=== PATIENT | female | born 1980 ===

== ENCOUNTER 2020-04-23 12:11 | Outpatient (REF) | payer OTHER, SELFPAY ==
--- NOTE | 2020-04-23 12:27 | XR_ITS ---
EXAMINATION: XR RIBS, LEFT CLINICAL INFORMATION: Chest pain COMPARISON: Previous chest x-ray July 2019 TECHNIQUE: 3 views of the left ribs and one view of the chest were obtained. FINDINGS: Lungs are clear. No consolidation, pneumothorax, or pleural effusion. The cardiomediastinal silhouette and pulmonary vasculature are normal. Osseous structures are unremarkable. Ribs are intact. No fractures are identified. XR/XR ribs LT min 3V w CXR1V IMPRESSION: Unremarkable examination.
== END 2020-04-23 12:12 | disposition home or self-care (01) ==
LOC: HO.XRAY 12:11
PROVIDERS: PCP Internal Medicine; Visit Provider Internal Medicine
DX: R07.9 Chest pain, unspecified (principal)
CPT/HCPCS: 71101

== ENCOUNTER 2020-06-28 08:57 | Outpatient (REF) | payer OTHER, SELFPAY ==
[2020-06-29 13:19] LABS: BV Int Neg Control Negative (Negative); BV Int Pos Control Positive (Positive)
[2020-06-30 02:17] LABS: C. trachomatis RNA TMA NOT DETECTED (NOT DETECTED); N. gonorrhoeae RNA TMA NOT DETECTED (NOT DETECTED)
[2020-07-04 17:07] LABS: HPV mRNA E6/E7 rflx Not Detected (Not Detected)
== END 2020-06-28 08:58 | disposition home or self-care (01) ==
LOC: HO.LAB 08:57
PROVIDERS: PCP Internal Medicine; Visit Provider Advanced Practice Midwife
DX: Z01.419 Encounter for gynecological examination (general) (routine) without abnormal findings (principal); N92.1 Excessive and frequent menstruation with irregular cycle; N89.8 Other specified noninflammatory disorders of vagina; R10.2 Pelvic and perineal pain; R23.2 Flushing; E55.9 Vitamin D deficiency, unspecified; Z97.5 Presence of (intrauterine) contraceptive device; Z11.8 Encounter for screening for other infectious and parasitic diseases; Z11.3 Encounter for screening for infections with a predominantly sexual mode of transmission
CPT/HCPCS: 36415; 81003; 84443; 87480; 87491; 87510; 87591; 87624; 87660; 88142

== ENCOUNTER 2020-07-02 11:21 | Outpatient (REF) | payer OTHER, SELFPAY | END 2020-07-02 11:22 | disposition home or self-care (01) | LOC: HO.LAB 11:21 | PROVIDERS: Visit Provider Advanced Practice Midwife | DX: Z13.89 Encounter for screening for other disorder (principal) ==

== ENCOUNTER 2020-07-11 12:57 | Outpatient (REF) | payer OTHER, SELFPAY ==
--- NOTE | ~2020-07-11 | US_ITS ---
EXAMINATION: US PELVIC COMPLETE US TRANSVAGINAL CLINICAL INFORMATION: Pain. COMPARISON: Previous pelvic MRI 2017. TECHNIQUE: Transabdominal and transvaginal pelvic ultrasound was performed. Transvaginal exam was performed for better visualization of the uterus and ovaries. FINDINGS: The uterus is retroverted and measures 7.3 x 4.3 x 5.4 cm in dimension. There is a 9 x 8 x 9 mm hypoechoic lesion in the right uterine body suggestive of a fibroid. No other focal uterine lesion is seen. There is an IUD in the uterus in satisfactory position. The endometrium does not appear thickened measuring 0.3 cm. The right ovary measures 3.9 x 2.1 x 2.3 cm. There are 2 slightly complex right ovarian cysts with daughter cysts or septation. These measure 1.3 x 1.3 x 1.2 cm and 1.7 x 1.2 x 1.3 cm. The left ovary is normal-appearing and measures 3 x 2.1 x 1.9 cm. There is no fluid in the pelvis. US/US transvaginal IMPRESSION: IUD in the uterus in satisfactory position. Small uterine fibroid.
--- NOTE | ~2020-07-11 | US_ITS ---
EXAMINATION: US PELVIC COMPLETE US TRANSVAGINAL CLINICAL INFORMATION: Pain. COMPARISON: Previous pelvic MRI 2017. TECHNIQUE: Transabdominal and transvaginal pelvic ultrasound was performed. Transvaginal exam was performed for better visualization of the uterus and ovaries. FINDINGS: The uterus is retroverted and measures 7.3 x 4.3 x 5.4 cm in dimension. There is a 9 x 8 x 9 mm hypoechoic lesion in the right uterine body suggestive of a fibroid. No other focal uterine lesion is seen. There is an IUD in the uterus in satisfactory position. The endometrium does not appear thickened measuring 0.3 cm. The right ovary measures 3.9 x 2.1 x 2.3 cm. There are 2 slightly complex right ovarian cysts with daughter cysts or septation. These measure 1.3 x 1.3 x 1.2 cm and 1.7 x 1.2 x 1.3 cm. The left ovary is normal-appearing and measures 3 x 2.1 x 1.9 cm. There is no fluid in the pelvis. US/US pelvic complete IMPRESSION: IUD in the uterus in satisfactory position. Small uterine fibroid.
== END 2020-07-11 12:58 | disposition home or self-care (01) ==
LOC: HO.US 12:57
PROVIDERS: Visit Provider Advanced Practice Midwife
DX: R10.2 Pelvic and perineal pain (principal)
CPT/HCPCS: 76830; 76856

== ENCOUNTER → 2020-07-17 09:45 | Outpatient (BNVA) | payer OTHER, SELFPAY | PROVIDERS: PCP Internal Medicine; Visit Provider Advanced Practice Midwife | DX: N83.299 Other ovarian cyst, unspecified side (principal); R10.2 Pelvic and perineal pain; Z71.2 Person consulting for explanation of examination or test findings | CPT/HCPCS: 99212 ==

== ENCOUNTER 2020-09-06 08:25 | Outpatient (REF) | payer OTHER, SELFPAY ==
--- NOTE | ~2020-09-06 | XR_ITS ---
EXAMINATION: XR SHOULDER, LEFT CLINICAL INFORMATION: Pain COMPARISON: Previous x-ray January 2009 TECHNIQUE: Three views of the left shoulder. FINDINGS: The bones and soft tissues are normal. No fracture. Glenohumeral and acromioclavicular alignment is anatomic with normal joint space. No abnormal soft tissue calcifications. XR/XR shoulder LT min 2V IMPRESSION: Normal left shoulder.
== END 2020-09-06 08:26 | disposition home or self-care (01) ==
LOC: HO.HOSX 08:25
PROVIDERS: Visit Provider Physician Assistant
DX: M25.512 Pain in left shoulder (principal); S16.1XXA Strain of muscle, fascia and tendon at neck level, initial encounter; M79.18 Myalgia, other site
CPT/HCPCS: 73030; 99202

== ENCOUNTER 2020-09-11 15:51 | Outpatient (REF) | payer OTHER, SELFPAY ==
--- NOTE | ~2020-09-11 | XR_ITS ---
EXAMINATION: XR CERVICAL SPINE CLINICAL INFORMATION: Neck pain. COMPARISON: None TECHNIQUE: 3 views of the cervical spine were obtained. FINDINGS: There is mild straightening of cervical lordosis.. The vertebral heights and alignment is normal. There is mild loss of C5-C6 and T1-T2 disc levels. There is minimal ventral spondylosis at C3-C4 and C5-C6 disc levels. No acute fracture or lytic process seen. The prevertebral and paravertebral soft tissues are normal. XR/XR cervical spine 2V IMPRESSION: Mild straightening of cervical lordosis with mild loss of C5-C6 and T1-T2 disc heights. No visible acute fracture or dislocation seen. There is mild ventral spondylosis at the C3-C4 and C5-C6 disc levels.
== END 2020-09-11 15:52 | disposition home or self-care (01) ==
LOC: HO.XRAY 15:51
PROVIDERS: PCP Internal Medicine; Visit Provider Internal Medicine
DX: M54.2 Cervicalgia (principal)
CPT/HCPCS: 72040

== ENCOUNTER 2020-10-14 12:42 | Outpatient (REF) | payer OTHER, SELFPAY ==
--- NOTE | ~2020-10-14 | US_ITS ---
EXAMINATION: PELVIC ULTRASOUND CLINICAL INFORMATION: Pain COMPARISON: Previous pelvic ultrasound recent July 2020 TECHNIQUE: Transabdominal and transvaginal pelvic ultrasound was performed. Transvaginal exam was performed for better visualization of the uterus and ovaries. FINDINGS: The uterus is retroverted and measures 7.5 x 4.5 x 5.1 in dimension. No focal uterine lesion is seen. The previously identified small right uterine body fibroid is not appreciated. There is an IUD in the uterus in satisfactory position. Endometrial thickness measures 1.3 cm. There is a small amount of fluid seen in the endometrial cavity. The endometrium appears slightly irregular in contour. The cervix is normal appearing. The right ovary measures 4.2 x 2.8 x 2.2 cm. There is a 2.2 x 1.4 x 1.7 cm complex cyst which is slightly irregularly-shaped, has a thickened wall and some septations. This probably represents an involuting physiologic cyst. The left ovary is normal-appearing and measures 3 x 2 x 1.5 cm. There is a small amount of fluid in the pelvis. US/US transvaginal IMPRESSION: IUD in the uterus in satisfactory position. Small amount of fluid in the endometrial cavity and irregular contour of the endometrial surface. New 2.2 x 1.4 x 1.7 cm right ovarian cyst irregularly-shaped probably representing an involuting physiologic cyst.
--- NOTE | ~2020-10-14 | US_ITS ---
EXAMINATION: PELVIC ULTRASOUND CLINICAL INFORMATION: Pain COMPARISON: Previous pelvic ultrasound recent July 2020 TECHNIQUE: Transabdominal and transvaginal pelvic ultrasound was performed. Transvaginal exam was performed for better visualization of the uterus and ovaries. FINDINGS: The uterus is retroverted and measures 7.5 x 4.5 x 5.1 in dimension. No focal uterine lesion is seen. The previously identified small right uterine body fibroid is not appreciated. There is an IUD in the uterus in satisfactory position. Endometrial thickness measures 1.3 cm. There is a small amount of fluid seen in the endometrial cavity. The endometrium appears slightly irregular in contour. The cervix is normal appearing. The right ovary measures 4.2 x 2.8 x 2.2 cm. There is a 2.2 x 1.4 x 1.7 cm complex cyst which is slightly irregularly-shaped, has a thickened wall and some septations. This probably represents an involuting physiologic cyst. The left ovary is normal-appearing and measures 3 x 2 x 1.5 cm. There is a small amount of fluid in the pelvis. US/US pelvic complete IMPRESSION: IUD in the uterus in satisfactory position. Small amount of fluid in the endometrial cavity and irregular contour of the endometrial surface. New 2.2 x 1.4 x 1.7 cm right ovarian cyst irregularly-shaped probably representing an involuting physiologic cyst.
== END 2020-10-14 12:43 | disposition home or self-care (01) ==
LOC: HO.US 12:42
PROVIDERS: PCP Internal Medicine; Visit Provider Advanced Practice Midwife
DX: R10.2 Pelvic and perineal pain (principal); N83.299 Other ovarian cyst, unspecified side
CPT/HCPCS: 76830; 76856

== ENCOUNTER 2020-10-21 13:18 | Outpatient (REF) | payer OTHER, SELFPAY ==
[2020-10-22 18:56] LABS: CA-125 9 U/mL (<35)
== END 2020-10-21 13:19 | disposition home or self-care (01) ==
LOC: HO.LAB 13:18
PROVIDERS: PCP Internal Medicine; Visit Provider Advanced Practice Midwife
DX: N83.291 Other ovarian cyst, right side (principal); R10.2 Pelvic and perineal pain; M54.9 Dorsalgia, unspecified; M79.18 Myalgia, other site; Z71.2 Person consulting for explanation of examination or test findings
CPT/HCPCS: 36415; 86304; 99212

== ENCOUNTER 2020-11-29 15:33 | Outpatient (REF) | payer OTHER, SELFPAY ==
--- NOTE | ~2020-11-29 | US_ITS ---
EXAMINATION: US PELVIS COMPLETE US PELVIS ENDOVAGINAL CLINICAL INFORMATION: Ovarian cyst. LMP 11/11/2020 COMPARISON: 10/14/2020 TECHNIQUE: Transabdominal and transvaginal images of the pelvis were obtained. FINDINGS: UTERUS: Retroverted, retroflexed. Normal size and contour, measuring 8.1 x 3.9 x 4.8 cm (cervix to fundus x AP x transverse). An IUD is seen centrally in the endometrial canal Uniform, homogeneous endometrium measures 0.8 cm in width. Again seen is a 1 cm leiomyoma in the right uterine body. 79 cc total uterine volume. RIGHT OVARY: Normal size and echogenicity measuring 3.5 x 1.6 x 1.5 cm. 4.4 cc volume. LEFT OVARY: Normal size and echogenicity measuring 3.7 x 1.9 x 1.9 cm. 6.9 cc volume. Irregular, crenulated 2.0 x 1.4 x 1.7 cm corpus luteum cyst. FREE FLUID: No pelvic free fluid. US/US pelvic and transvaginal IMPRESSION: Normal appearance of the ovaries bilaterally. IUD satisfactorily positioned centrally in the endometrial canal. Unchanged 1 cm right uterine body leiomyoma.
== END 2020-11-29 15:34 | disposition home or self-care (01) ==
LOC: HO.US 15:33
PROVIDERS: Visit Provider Advanced Practice Midwife
DX: N83.299 Other ovarian cyst, unspecified side (principal)
CPT/HCPCS: 76830; 76856

== ENCOUNTER 2020-12-06 13:11 | Outpatient (REF) | payer OTHER, SELFPAY ==
--- NOTE | ~2020-12-06 | XR_ITS ---
EXAMINATION: XR CHEST CLINICAL INFORMATION: Cough. COMPARISON: Chest and rib radiographs dated 04/23/2020. TECHNIQUE: 2 views of the chest were obtained. FINDINGS: The lungs are clear. The cardiomediastinal silhouette is normal in size. There is no pleural effusion or pneumothorax. No acute osseous abnormality. XR/XR chest 2V IMPRESSION: No acute cardiopulmonary findings.
== END 2020-12-06 13:12 | disposition home or self-care (01) ==
LOC: HO.XRAY 13:11
PROVIDERS: PCP Internal Medicine; Visit Provider Internal Medicine
DX: R05 Cough (principal)
CPT/HCPCS: 71046

== ENCOUNTER 2021-03-07 14:05 | Outpatient (REF) | payer OTHER, SELFPAY ==
--- NOTE | ~2021-03-07 | MM_ITS ---
EXAMINATION: MM SCREENING DIGITAL BREAST TOMOSYNTHESIS, BILATERAL CLINICAL INFORMATION: Screening. Asymptomatic. The lifetime risk of breast cancer based on the Tyrer-Cuzick Model is 6%. COMPARISON: Mammography: 01/15/2020, 01/09/2020, 12/23/2018, 06/05/2014 TECHNIQUE: Digital breast tomosynthesis is performed in both the craniocaudal and mediolateral oblique views along with computer-aided detection (CAD). Synthesized 2D images are generated from the tomosynthesis. FINDINGS: The breasts are heterogeneously dense, which may obscure small masses (ACR BI-RADS breast composition Category c). Breast tissue composition borders on average fibroglandular. Parenchymal pattern is similar to prior studies. No developing density or interval mass or architectural abnormality. No abnormal calcifications. The axilla and skin contours are unremarkable. MM/MM tomosynthesis screening BI IMPRESSION: No mammographic evidence of malignancy. ASSESSMENT: BI-RADS 1: Negative RECOMMENDATION: Routine annual mammography screening. This patient's information was entered into a reminder system with a target due date for their next mammogram.
== END 2021-03-07 14:06 | disposition home or self-care (01) ==
LOC: HO.MAMMO 14:05
PROVIDERS: Visit Provider Advanced Practice Midwife
DX: Z12.31 Encounter for screening mammogram for malignant neoplasm of breast (principal)
CPT/HCPCS: 77063; 77067

== ENCOUNTER 2021-04-18 15:51 | Outpatient (REF) | payer OTHER, SELFPAY ==
--- NOTE | ~2021-04-18 | XR_ITS ---
EXAMINATION: XR HAND, RIGHT CLINICAL INFORMATION: Right hand pain. COMPARISON: None TECHNIQUE: PA, lateral, and oblique views of the right hand. FINDINGS: There is a small cortical lucency along the ulnar aspect of the distal phalanx of the third digit which could represent small nondisplaced incomplete fracture the right clinical setting. No other abnormality. Alignment is anatomic. Joint spaces are maintained. No erosions or other abnormality. XR/XR hand RT 2V IMPRESSION: Subtle cortical lucency distal phalanx right third digit.
== END 2021-04-18 15:52 | disposition home or self-care (01) ==
LOC: HO.XRAY 15:51
PROVIDERS: PCP Internal Medicine; Visit Provider Internal Medicine
DX: M79.641 Pain in right hand (principal)
CPT/HCPCS: 73120

== ENCOUNTER 2021-05-08 12:55 | Outpatient (REF) | payer OTHER, SELFPAY ==
[2021-05-08 14:46] LABS: Appearance Urine CLEAR; Color Urine STRAW; Glucose Urine UA NEG (NEG); Leukocyte Esterase Urine 3+ (NEG); Nitrite Urine POS (NEG); Specific Gravity - Urine <= 1.005 (1.005-1.025); UACC Culture Trigger YES; Urine Blood NEG (NEG); Urine Ketones NEG (NEG); Urine Protein NEG (NEG-TRACE)
[2021-05-08 14:56] LABS: Squamous Epithelial Cell Urine 1+ /LPF; WBC Clumps Urine NOTED
[2021-05-08 14:58] LABS: Amorphous Sediment Urine 1+ /LPF; Bacteria Urine TRACE /LPF; RBC Urine 0 /HPF (0)
== END 2021-05-08 12:56 | disposition home or self-care (01) ==
LOC: HO.LAB 12:55
PROVIDERS: Internal Medicine; Visit Provider Internal Medicine
DX: R30.9 Painful micturition, unspecified (principal)
CPT/HCPCS: 81001; 87086; 87088; 87186

== ENCOUNTER → 2021-05-14 12:58 | Outpatient (BNVA) | payer OTHER, SELFPAY | PROVIDERS: PCP Internal Medicine; Visit Provider Nurse Practitioner Family | DX: M54.89 Other dorsalgia (principal); M79.672 Pain in left foot; R21 Rash and other nonspecific skin eruption | CPT/HCPCS: 99212 ==

== ENCOUNTER 2021-05-15 09:31 | Outpatient (REF) | payer OTHER, SELFPAY ==
[2021-05-15 10:20] LABS: Hematocrit 36.9 % (37.0-47.0); Hemoglobin 13.8 g/dl (12.0-16.0); Mean Corpuscular HGB Conc 37.4 g/dl (31.0-35.0); Mean Corpuscular Hemoglobin 33.2 pg (27.0-33.0); Mean Corpuscular Volume 88.7 fL (80.0-98.0); Platelet Count 393 X10*3/uL (160-400); Red Blood Count 4.16 X10*6/uL (4.20-5.50); Red Cell Distribution Width 13.1 % (11.0-16.0)
[2021-05-15 10:26] LABS: Estimated Average Glucose 80 mg/dL; Hemoglobin A1c % 4.4 %
[2021-05-15 10:37] LABS: WBC ABN SCTR FOR CBC 1
[2021-05-15 10:47] LABS: Appearance Urine CLEAR; Color Urine YELLOW; Glucose Urine UA NEG (NEG); Leukocyte Esterase Urine 1+ (NEG); Nitrite Urine NEG (NEG); Specific Gravity - Urine <= 1.005 (1.005-1.025); UACC Culture Trigger YES; Urine Blood NEG (NEG); Urine Ketones NEG (NEG); Urine Protein NEG (NEG-TRACE)
[2021-05-15 10:59] LABS: Alanine Aminotransferase 8 U/L (0-31); Albumin Level 3.9 g/dL (3.5-5.0); Alkaline Phosphatase 62 U/L (39-117); Anion Gap 13 (12-20); Aspartate Amino Transferase 19 U/L (5-31); Bilirubin Total 1.1 mg/dL (0.0-1.0); Blood Urea Nitrogen 8 mg/dL (9-16); C Reactive Protein 2.05 mg/dL (< or = 0.50); Calcium 9.6 mg/dL (8.4-10.2); Carbon Dioxide 22 mmol/L (22-29); Chloride 106 mmol/L (96-108); Cholesterol 202 mg/dL; Estimated Glomerular Filt Rate > 60; Glucose Random 89 mg/dL (60-115); HDL Cholesterol 70 mg/dL; LDL Cholesterol Calculated 118 mg/dl; Potassium 4.6 mmol/L (3.3-5.1); Sodium 136 mmol/L (135-145); Total Protein 7.3 g/dL (6.5-8.0); Triglycerides 71 mg/dL
[2021-05-15 11:08] LABS: Free T4 (Free Thyroxine) 1.09 ng/dL (0.71-1.85); Thyroid Stimulating Hormone 1.27 uIU/mL (0.32-4.0); Vitamin D 25-OH Total 34.6 ng/mL (>30)
[2021-05-15 11:32] LABS: Atypical Lymphs Percent Manual 1 % (0-6); Band Neutrophils Percent 5 % (3-5); Eosinophils Percent Manual 1 % (0-4); Lymphocytes Percent Manual 19 % (20-40); Monocytes Percent Manual 5 % (2-11); Neutrophils Percent Manual 69 % (45-73)
[2021-05-15 11:33] LABS: Acanthocytes 2+ (3-5) /OIF; Platelet Estimate NORMAL (NORMAL); Platelet Morphology Comment NORMAL; RBC Morphology NORMAL
[2021-05-15 11:34] LABS: Ovalocytes 1+ (5-14) /OIF; Target Cells 1+ (5-14) /OIF
[2021-05-15 11:38] LABS: Erythrocyte Sedimentation Rate 28 MM/HR (0-20)
[2021-05-15 11:53] LABS: Folate 14.7 ng/mL (> or = 4.0); Vitamin B12 439 pg/mL (200-900)
[2021-05-15 11:55] LABS: Atypical Lymph Absolute Manual 0.1 x10*3/uL; Eosinophils Absolute Manual 0.1 X10*3/uL (0.0-0.4); Lymphocytes Absolute Manual 1.7 X10*3/uL (1.2-4.9); Monocytes Absolute Manual 0.5 X10*3/uL (0.1-1.2); Neutrophils Absolute Manual 6.7 X10*3/uL (2.0-8.3); White Blood Count 9.1 X10*3/uL (4.8-10.8)
[2021-05-15 11:56] LABS: RBC Urine 0-2 /HPF (0); Squamous Epithelial Cell Urine 1+ /LPF
== END 2021-05-15 09:32 | disposition home or self-care (01) ==
LOC: HO.LAB 09:31
PROVIDERS: Visit Provider Internal Medicine
DX: E78.00 Pure hypercholesterolemia, unspecified (principal); K21.9 Gastro-esophageal reflux disease without esophagitis; M54.89 Other dorsalgia
CPT/HCPCS: 36415; 80053; 80061; 81001; 82306; 82607; 82746; 83036; 84439; 84443; 85007; 85027; 85652; 86140; 87086

== ENCOUNTER 2021-08-18 14:13 | Outpatient (REF) | payer OTHER, SELFPAY ==
--- NOTE | ~2021-08-18 | XR_ITS ---
EXAMINATION: XR LUMBOSACRAL SPINE CLINICAL INFORMATION: Low back pain COMPARISON: Previous x-ray January 2013 TECHNIQUE: Three views of the lumbosacral spine. FINDINGS: The vertebral bodies and posterior elements are normal. The disc spaces are preserved and the vertebral alignment is normal. The paraspinal soft tissues are normal. There is an IUD in the pelvis. XR/XR lumbar spine 2-3V IMPRESSION: Unremarkable examination.
--- NOTE | ~2021-08-18 | XR_ITS ---
EXAMINATION: XR HIP, LEFT CLINICAL INFORMATION: Pain COMPARISON: Previous x-ray January 2009 TECHNIQUE: Two views of the left hip. FINDINGS: Bone alignment is normal. No fracture or dislocation is seen. The joint space is normal. There is an IUD in the pelvis. Soft tissues are otherwise normal. XR/XR hip LT min 2V IMPRESSION: Normal left hip.
== END 2021-08-18 14:14 | disposition home or self-care (01) ==
LOC: HO.XRAY 14:13
PROVIDERS: PCP Internal Medicine; Visit Provider Internal Medicine
DX: M25.552 Pain in left hip (principal); M54.50 Low back pain, unspecified
CPT/HCPCS: 72100; 73502

== ENCOUNTER 2021-09-02 07:17 | Outpatient (REF) | payer OTHER, SELFPAY | END 2021-09-02 07:18 | disposition home or self-care (01) | LOC: HO.HOSX 07:17 | PROVIDERS: Visit Provider Physician Assistant | DX: Z13.89 Encounter for screening for other disorder (principal) ==

== ENCOUNTER 2021-09-04 09:10 | Outpatient (REF) | payer OTHER, SELFPAY ==
[2021-09-08 20:42] LABS: HPV mRNA E6/E7 rflx Not Detected (Not Detected)
== END 2021-09-04 09:11 | disposition home or self-care (01) ==
LOC: HO.LAB 09:10
PROVIDERS: PCP Internal Medicine; Visit Provider Advanced Practice Midwife
DX: Z01.419 Encounter for gynecological examination (general) (routine) without abnormal findings (principal); Z11.51 Encounter for screening for human papillomavirus (HPV)
CPT/HCPCS: 87624; 88142

== ENCOUNTER 2021-10-24 07:09 | Outpatient (REF) | payer OTHER, SELFPAY ==
--- NOTE | ~2021-10-24 | XR_ITS ---
EXAMINATION: XR PELVIS CLINICAL INFORMATION: Left hip pain. COMPARISON: Left hip 08/18/2021 TECHNIQUE: AP view of the pelvis. FINDINGS: There is normal symmetry of bilateral hip joints without any bony erosive changes or loose bodies. No visible acute fracture or dislocation seen. SI joints are symmetrical and normal. There is an IUD well located within central pelvis. The soft tissues are normal. XR/XR pelvis 1-2V IMPRESSION: Unremarkable AP pelvis exam.
== END 2021-10-24 07:10 | disposition home or self-care (01) ==
LOC: HO.HOSX 07:09
PROVIDERS: Visit Provider Physician Assistant
DX: M54.16 Radiculopathy, lumbar region (principal)
CPT/HCPCS: 72170; 99212

== ENCOUNTER → 2021-11-19 10:16 | Outpatient (BNVA) | payer OTHER, SELFPAY | PROVIDERS: PCP Internal Medicine; Visit Provider Anesthesiology | DX: M46.1 Sacroiliitis, not elsewhere classified (principal); M53.3 Sacrococcygeal disorders, not elsewhere classified | CPT/HCPCS: 99202 ==

== ENCOUNTER 2022-02-20 09:48 | Outpatient (REF) | payer OTHER, SELFPAY ==
[2022-02-20 10:04] LABS: MANUAL DIFF FLAG NO
[2022-02-20 11:01] LABS: Basophils Percent Auto 0.3 % (0-2); Eosinophils Absolute Auto 0.1 X10*3/uL (0.0-0.4); Eosinophils Percent Auto 1.3 % (0-4); Hematocrit 39.3 % (37.0-47.0); Hemoglobin 14.3 g/dl (12.0-16.0); Imm Gran Abs Auto 0.03 X10*3/uL (0.00-0.03); Imm Gran Pct Auto 0.4 % (0.0-0.4); Lymphocytes Absolute Auto 2.2 X10*3/uL (1.2-4.9); Lymphocytes Percent Auto 32.2 % (20-40); Mean Corpuscular HGB Conc 36.4 g/dl (31.0-35.0); Mean Corpuscular Hemoglobin 33.3 pg (27.0-33.0); Mean Corpuscular Volume 91.6 fL (80.0-98.0); Monocytes Absolute Auto 0.6 X10*3/uL (0.1-1.2); Monocytes Percent Auto 8.3 % (2-11); Neutrophils Absolute Auto 3.9 x10*3/uL (2.0-8.3); Neutrophils Percent Auto 57.5 % (45-73); Platelet Count 338 X10*3/uL (160-400); Red Blood Count 4.29 X10*6/uL (4.20-5.50); Red Cell Distribution Width 14.1 % (11.0-16.0); White Blood Count 6.8 X10*3/uL (4.8-10.8)
[2022-02-20 11:19] LABS: Alanine Aminotransferase 7 U/L (0-31); Aspartate Amino Transferase 19 U/L (5-31); Estimated Glomerular Filt Rate > 60
[2022-02-20 11:35] LABS: Erythrocyte Sedimentation Rate 5 MM/HR (0-20)
== END 2022-02-20 09:49 | disposition home or self-care (01) ==
LOC: HO.LAB 09:48
PROVIDERS: PCP Internal Medicine; Visit Provider Nurse Practitioner Family
DX: M25.50 Pain in unspecified joint (principal); Z79.899 Other long term (current) drug therapy
CPT/HCPCS: 36415; 82565; 84450; 84460; 85025; 85652; 86140

== ENCOUNTER → 2022-03-06 13:19 | Outpatient (BNVA) | payer OTHER, SELFPAY | PROVIDERS: PCP Internal Medicine; Visit Provider Nurse Practitioner Family | DX: M54.50 Low back pain, unspecified (principal); R21 Rash and other nonspecific skin eruption; M79.7 Fibromyalgia | CPT/HCPCS: 99212 ==

== ENCOUNTER 2022-03-13 14:07 | Outpatient (REF) | payer OTHER, SELFPAY ==
--- NOTE | ~2022-03-13 | MM_ITS ---
EXAMINATION: MM SCREENING DIGITAL BREAST TOMOSYNTHESIS, BILATERAL CLINICAL INFORMATION: Screening. Asymptomatic. The lifetime risk of breast cancer based on the Tyrer-Cuzick Model is 6%. COMPARISON: Mammography: 03/07/2021, 01/15/2020, 01/09/2020, 12/23/2018 TECHNIQUE: Digital breast tomosynthesis is performed in both the craniocaudal and mediolateral oblique views along with computer-aided detection (CAD). Synthesized 2D images are generated from the tomosynthesis. FINDINGS: The breasts are heterogeneously dense, which may obscure small masses (ACR BI-RADS breast composition Category c). There are no significant masses, abnormal calcifications, or other abnormalities. Breast tissue composition borders on average fibroglandular. No developing density or architectural abnormality. The axilla are unremarkable. Skin contours are smooth. MM/MM tomosynthesis screening BI IMPRESSION: No mammographic evidence of malignancy. ASSESSMENT: BI-RADS 1: Negative RECOMMENDATION: Routine annual mammography screening. This patient's information was entered into a reminder system with a target due date for their next mammogram.
== END 2022-03-13 14:08 | disposition home or self-care (01) ==
LOC: HO.MAMMO 14:07
PROVIDERS: PCP Internal Medicine; Visit Provider Internal Medicine
DX: Z12.31 Encounter for screening mammogram for malignant neoplasm of breast (principal)
CPT/HCPCS: 77063; 77067

== ENCOUNTER 2022-03-26 13:56 | Outpatient (REF) | payer OTHER, SELFPAY ==
--- NOTE | 2022-03-26 16:08 | PFT_ITS ---
Forced vital capacity 84%, FEV1 94%, FEV1/FVC ratio is 91. [id number] 112% and MVV 103%. Post bronchodilator therapy, there is no significant change. Total lung capacity 81%. Residual volume 71%. Diffusion capacity 116% CONCLUSION: Normal pulmonary function test, and there is no evidence of any obstructive or restrictive pulmonary disorder. MD ELIA Van/GILLL / [id number]
== END 2022-03-26 13:57 | disposition home or self-care (01) ==
LOC: HO.RESP 13:56
PROVIDERS: PCP Internal Medicine; Visit Provider Internal Medicine
DX: R06.02 Shortness of breath (principal)
CPT/HCPCS: 94060; 94727; 94729

== ENCOUNTER 2022-09-10 09:29 | Outpatient (REF) | payer OTHER, SELFPAY ==
[2022-09-10 15:28] LABS: CT PCR NOT DETECTED (Not Detect.); NG PCR NOT DETECTED (Not Detect.)
[2022-09-14 22:44] LABS: HPV mRNA E6/E7 rflx Not Detected (Not Detected)
== END 2022-09-10 09:30 | disposition home or self-care (01) ==
LOC: HO.LNP 09:29
PROVIDERS: PCP Internal Medicine; Visit Provider Advanced Practice Midwife
DX: Z01.419 Encounter for gynecological examination (general) (routine) without abnormal findings (principal); Z20.2 Contact with and (suspected) exposure to infections with a predominantly sexual mode of transmission
CPT/HCPCS: 0353U; 81003; 87624; 88142

== ENCOUNTER 2023-03-05 13:05 | Outpatient (AMB) | payer OTHER, SELFPAY ==
[2023-03-05 13:06] VITALS: BP 112/68; PULSE 71; O2SAT 98; BMI 22.6
--- NOTE | 2023-03-05 13:06 | MHC.PC.OV ---
Vital Signs 03/05/23 13:06 Height 4 ft 11 in Weight 112 lb BMI 22.6 BP 112/68 Blood Pressure Location Lt brachial Position Sitting Pulse 71 Pulse Source Pulse Oximeter Pulse Oximetry (%) 98 Oxygen Delivery Method Room Air Intake Visit Reasons: PE Intake Note: Patient wants full blood work because she is over 40 and has been experiencing some dizziness. Allergies No Known Allergies Allergy (Verified 03/05/23 13:07) Medication List - Last Reconciled 03/05/23 by Trell Day MD calcium carbonate 390 mg PO BID cholecalciferol (vitamin D3) 10 mcg PO DAILY cyclobenzaprine 5 mg PO BEDTIME PRN fexofenadine ([place]maira Allergy) 180 mg PO DAILY naproxen 375 mg PO BID vitamin B complex (B Complex-Vitamin B12 tablet) 1 tab PO DAILY Tobacco use date assessed: 03/05/23 Dental Screening Dental Screen Date: 03/05/23 Did you have a dental visit in the last 12 months?: Yes Did you have a dental problem in the last 6 months where you did not have access to dental care?: No Was dental information given to patient?: Patient has dentist HPI PE HPI Details 42-year-old female with a history of GERD and sacroiliitis coming in for physical exam last seen in January 2022. Mammogram is due patient was complaining of shortness of breath and a pulmonary function test was done revealing negative results. Irene felt dizzy, feels watery ear, states romanian med has diarrhea PFSH Medical History Angioedema GERD (gastroesophageal reflux disease) Gestational diabetes Hx of abnormal cervical Pap smear Hypercholesterolemia Vitamin D deficiency Surgical History Hx of LASIK No pertinent past surgical history Family History (Updated 03/05/23 @ 13:43 by Trell Day MD) Father CVD (cerebrovascular disease) Mother No problems noted. Sister Nasopharyngeal cancer Social History (Updated 03/05/23 @ 13:44 by Trell Day MD) Housing: House Alcohol intake: current Patient Tobacco Use Status: Never used Tobacco e-Cigarette/Vaping Use: Never Used Second Hand Smoke Exposure: No service: No Current occupational status: unemployed Cognitive needs: No Hearing needs: No Vision needs: No Questionnaire PHQ-9 Over the last 2 weeks, how often have you been bothered by any of the following problems? 1. Little interest or pleasure in doing things: not at all 2. Feeling down, depressed, or hopeless: not at all 3. Trouble falling or staying asleep, or sleeping too much: not at all 4. Feeling tired or having little energy: not at all 5. Poor appetite or overeating: not at all 6. Feeling bad about yourself - or that you are a failure or have let yourself or your family down: not at all 7. Trouble concentrating on things, such as reading the newspaper or watching television: not at all 8. Moving or speaking so slowly that other people could have noticed. Or the opposite - being so fidgety or restless that you have been moving around a lot more than usual: not at all 9. Thoughts that you would be better off or of hurting yourself in some way: not at all Total score: 0 Depression Screening Interpretation: Negative Depression Screening Done: Yes Source: Developed by Drs. Bayron Daugherty, Rosemary Burrows, Elias Villanueva and colleagues, with an educational niecy from [employer]. Thrive Questionnaire Date Thrive assessed: 03/05/23 I am a: Patient What is your living situation today?: I have a steady place to live Within the past 12 months, did the food you bought not last and you didn't have the money to get more?: Never true Within the past 12 months, did you worry whether your food would run out before you got money to buy more?: Never true Do you have trouble paying for medicines?: No Do you have trouble getting transportation to medical appointments?: No Do you have trouble paying your heating and electricity bill?: No Do you have trouble taking care of your child, family member or friend?: No Do you have trouble with day-to-day activities such as bathing, preparing meals, shopping, managing finances, etc.?: No Are you currently unemployed and looking for a job?: No Are you interested in more education?: No Currently or been in a relationship where the following occur: no concerns reported AUDIT C Alcohol Use Questionnaire (AUDIT-C) 1. How often do you have a drink containing alcohol?: Monthly or less 2. How many drinks containing alcohol do you have on a typical day when you are drinking?: 1 or 2 3. How often do you have six or more drinks on one occasion?: Never Total Score: 1 LAMINE-7 AMB Questionnaire LAMINE-7 Date LAMINE - 7 assessed: 03/05/23 Feeling nervous, anxious, or on edge: 0 = Not at all Not being able to stop or control worryin = Not at all Worrying too much about different things: 0 = Not at all Trouble relaxin = Not at all Being so restless that it is hard to sit still: 0 = Not at all Becoming easily annoyed or irritable: 0 = Not at all Feeling afraid as if something awful might happen: 0 = Not at all Total LAMINE-7 score (0-4 normal; 5-9 mild; 10-14 moderate; 15-21 severe): 0 Source: Developed by Drs. Bayron Daugherty, Rosemary Burrows, Elias Villanueva and colleagues, with an educational niecy from [employer]. Review of Systems Const Denies poor appetite and Denies weakness Eyes Denies no additional complaints ENT Reports Normal hearing present, Denies dizziness, Denies nasal congestion, Denies tinnitus and Denies sore throat Card Denies chest pain, Denies syncope, Denies rapid heart rate and Denies dyspnea Resp Denies cough and Denies dyspnea GI Denies change in stool character, Reports constipation, Denies diarrhea, Denies nausea and Denies vomiting Denies urinary frequency, Denies difficulty voiding and Denies dysuria Neuro Reports Normal hearing present, Denies confusion, Denies dizziness, Denies syncope and Denies weakness Psych Denies confusion Physical exam (Primary Care) Vital Signs: Last Vital Signs Pulse 71 03/05/23 13:06 BP 112/68 03/05/23 13:06 Pulse Ox 98 03/05/23 13:06 Oxygen Delivery Method Room Air 03/05/23 13:06 BMI result Body Mass Index 22.6 Tobacco/Smoking Status: Tobacco use Status Tobacco use date assessed 03/05/23 03/05/23 13:14 Patient Tobacco Use Status Never used Tobacco 03/05/23 13:14 e-Cigarette/Vaping Use Never Used 03/05/23 13:14 PHQ-9: PHQ-9 Score PHQ-9: Total score 0 03/05/23 13:17 Depression Screening Interpretation: Negative Thrive Assessment: Date of Thrive Assessment Date Thrive assessed 03/05/23 03/05/23 13:14 Currently or been in a relationship where the following occur: no concerns reported Const General: No confusion Orientation/consciousness: No confusion HENMT Head: Yes normocephalic Ears: external ears normal and TM's normal bilaterally Face and sinus: Yes normal facial exam Mouth: moist mucous membranes Throat: Yes tonsils normal Eyes Conjunctivae: conjunctivae normal Pupils: Equal, round and reactive pupils present and Pupil accommodation reflex normal Direct Ophthalmoscopy: normal light reflex Neck Neck: No lymphadenopathy Thyroid: Thyroid normal Chest Chest palpation & inspection: normal inspection of the chest Resp Effort & Inspection: normal respiratory effort and no audible wheezes Auscultation: clear to auscultation bilaterally, no crackles, no wheezes and lung sounds not diminished Cardio Rate: regular rate Rhythm: regular rhythm Peripheral pulses: radial pulses present and dorsalis pedis present GI Palpation (GI): no masses Auscultation: normal bowel sounds and normoactive bowel sounds Rectal Exam - Female: deferred Skin General skin exam: no rashes or lesions noted Rashes: no rashes Neuro General: No confusion Cranial nerves: Yes Equal, round and reactive pupils present and Yes Normal hearing present Cognition (Neuro): normal cognition Gait exam (Neuro): Normal gait present Motor exam (neuro): 5/5 motor strength present throughout Deep tendon reflexes (DTR's): Right brachioradialis reflex intensity grade: 2+, Left brachioradialis reflex intensity grade: 2+, Right patellar reflex intensity grade: 2+ and Left patellar reflex intensity grade: 2+ Extrem General: No edema Office Procedures Flu Questionnaire Does the patient have a severe egg allergy?: No Does the patient have severe life threatening allergies?: No Does the patient have a fever or illness today?: No Has the patient ever had Guillain-Glenwood Syndrome?: No Has the patient ever had any past reaction to a flu shot?: No Immunizations flu vacc [id number] 6mos up(PF) 60 mcg(15 mcgx4)/0.5 mL IM syringe Performing Provider: Trell Day MD [facility] Documented (not given) by: Kathryn Gerardo CMA on 03/05/23 13:17 Reason Not Given: Patient Refused Assessment and Plan Assessment & Plan (1) Annual physical exam: Code(s): Z00.00 - Encounter for general adult medical examination without abnormal findings (2) GERD (gastroesophageal reflux disease): Code(s): K21.9 - Gastro-esophageal reflux disease without esophagitis Qualifiers: Esophagitis presence: without esophagitis Qualified Code(s): K21.9 - Gastro-esophageal reflux disease without esophagitis Plan: Avoid the foods that causes that usually spicy foods, tomato products, juices, coffee, soda and foods that your sensitive to. After eating do not lie down, allow 3-4 hours before in lie down. And keep the head of bed above 30 degrees to avoid the acid from going up. (3) Ear congestion: Code(s): H93.8X9 - Other specified disorders of ear, unspecified ear Plan: referral to ENT Orders: Orders Influenza [id number] Immunization Today Z23 - Encounter for immunization Complete Blood Count Auto Diff Today K21.9 - Gastro-esophageal reflux disease without esophagitis Comprehensive Met. Panel Today K21.9 - Gastro-esophageal reflux disease without esophagitis Vitamin D 25-OH Total Today K21.9 - Gastro-esophageal reflux disease without esophagitis Erythrocyte Sedimentation Rate Today K21.9 - Gastro-esophageal reflux disease without esophagitis Free T4 (Free Thyroxine) Today K21.9 - Gastro-esophageal reflux disease without esophagitis Thyroid Stimulating Hormone Today K21.9 - Gastro-esophageal reflux disease without esophagitis Vitamin B12 and Folate Today K21.9 - Gastro-esophageal reflux disease without esophagitis Lipid Panel Today E78.00 - Pure hypercholesterolemia, unspecified, K21.9 - Gastro-esophageal reflux disease without esophagitis C Reactive Protein Today K21.9 - Gastro-esophageal reflux disease without esophagitis Referrals Ear/Nose/Throat Referral H93.8X9 - Other specified disorders of ear, unspecified ear Coding Level of Care Code Est Pt Prev Care 40-64y(88361) Diagnoses Annual physical exam Z00.00 Gastroesophageal reflux disease without esophagitis K21.9 Esophagitis presence: without esophagitis Ear congestion H93.8X9
== END 2023-03-05 14:02 | disposition home or self-care (01) ==
PROVIDERS: Visit Provider Internal Medicine
DX: Z00.00 Encounter for general adult medical examination without abnormal findings (principal); K21.9 Gastro-esophageal reflux disease without esophagitis; H93.8X9 Other specified disorders of ear, unspecified ear
CPT/HCPCS: 99396

== ENCOUNTER → 2023-03-18 13:00 | Outpatient (BNV) | payer OTHER, SELFPAY | PROVIDERS: PCP Internal Medicine; Visit Provider Radiology Diagnostic Radiology | DX: Z12.31 Encounter for screening mammogram for malignant neoplasm of breast (principal) | CPT/HCPCS: 77063; 77067 ==

== ENCOUNTER 2023-03-18 13:19 | Outpatient (REF) | payer OTHER, SELFPAY ==
--- NOTE | ~2023-03-18 | MM_ITS ---
EXAMINATION: MM SCREENING DIGITAL BREAST TOMOSYNTHESIS, BILATERAL CLINICAL INFORMATION: Screening. Asymptomatic. COMPARISON: Mammography: 03/13/2022, 03/07/2021, 01/15/2020, 01/09/2020, 12/23/2018, 06/05/2014 TECHNIQUE: Digital breast tomosynthesis is performed in both the craniocaudal and mediolateral oblique views along with computer-aided detection (CAD). Synthesized 2D images are generated from the tomosynthesis. FINDINGS: The breasts are heterogeneously dense, which may obscure small masses (ACR BI-RADS breast composition Category c). There are no suspicious masses, suspicious grouped calcifications, or areas of architectural distortion in either breast. The parenchymal pattern is stable from prior exams. There are no skin or axillary changes. MM/MM tomosynthesis screening BI IMPRESSION: No mammographic evidence of malignancy. ASSESSMENT: BI-RADS BI-RADS 1 - Negative RECOMMENDATION: Routine annual mammography screening. 1 year F/U This examination should not preclude the clinical evaluation of a suspicious palpable abnormality. This patient's information was entered into a reminder system with a target due date for their next mammogram.
== END 2023-03-18 13:20 | disposition home or self-care (01) ==
LOC: HO.MAMMO 13:19
PROVIDERS: PCP Internal Medicine; Visit Provider Internal Medicine
DX: Z12.31 Encounter for screening mammogram for malignant neoplasm of breast (principal)
CPT/HCPCS: 77063; 77067

== ENCOUNTER 2023-05-15 09:54 | Outpatient (REF) | payer OTHER, SELFPAY ==
[2023-05-15 10:46] LABS: Hematocrit 39.8 % (37.0-47.0); Hemoglobin 14.6 g/dl (12.0-16.0); Mean Corpuscular HGB Conc 36.7 g/dl (31.0-35.0); Mean Corpuscular Hemoglobin 32.9 pg (27.0-33.0); Mean Corpuscular Volume 89.6 fL (80.0-98.0); Mean Platelet Volume 11.6 fL (9.4-12.3); Platelet Count 397 X10*3/uL (160-400); Red Blood Count 4.44 X10*6/uL (4.20-5.50); Red Cell Distribution Width 14.1 % (11.0-16.0)
[2023-05-15 10:53] LABS: WBC ABN SCTR FOR CBC 1
[2023-05-15 11:18] LABS: Band Neutrophils Percent 0 % (3-5); Basophils Percent Manual 1 % (0-2); Eosinophils Percent Manual 1 % (0-4); Lymphocytes Percent Manual 34 % (20-40); Monocytes Percent Manual 6 % (2-11); Neutrophils Percent Manual 58 % (45-73)
[2023-05-15 11:25] LABS: Erythrocyte Sedimentation Rate 4 MM/HR (0-20)
[2023-05-15 11:27] LABS: Acanthocytes 1+ (0-2) /OIF; Howell Jolly Bodies PRESENT; Platelet Estimate NORMAL (NORMAL); Platelet Morphology Comment NORMAL; RBC Morphology NOTED; Target Cells 1+ (5-14) /OIF
[2023-05-15 11:28] LABS: Basophils Abs Manual 0.1 X10*3/uL (0.0-0.2); Eosinophils Absolute Manual 0.1 X10*3/uL (0.0-0.4); Lymphocytes Absolute Manual 2.2 X10*3/uL (1.2-4.9); Monocytes Absolute Manual 0.4 X10*3/uL (0.1-1.2); Neutrophils Absolute Manual 3.7 X10*3/uL (2.0-8.3); White Blood Count 6.4 X10*3/uL (4.8-10.8)
[2023-05-15 11:34] LABS: Alanine Aminotransferase 6 U/L (0-31); Albumin Level 3.9 g/dL (3.5-5.0); Alkaline Phosphatase 62 U/L (39-117); Anion Gap 15 (12-20); Aspartate Amino Transferase 20 U/L (5-31); Bilirubin Total 1.1 mg/dL (0.0-1.0); Blood Urea Nitrogen 7 mg/dL (9-16); C Reactive Protein 0.25 mg/dL (< or = 0.50); Calcium 9.1 mg/dL (8.4-10.2); Carbon Dioxide 23 mmol/L (22-29); Chloride 107 mmol/L (96-108); Cholesterol 207 mg/dL (<200); Estimated Glomerular Filt Rate > 60; Glucose Random 98 mg/dL (60-115); HDL Cholesterol 68 mg/dL (>40); LDL Cholesterol Calculated 127 mg/dL (<100); Potassium 4.4 mmol/L (3.3-5.1); Sodium 141 mmol/L (135-145); Total Protein 7.2 g/dL (6.5-8.0); Triglycerides 60 mg/dL (<150)
[2023-05-15 11:36] LABS: Free T4 (Free Thyroxine) 1.23 ng/dL (0.71-1.85); Thyroid Stimulating Hormone 1.18 uIU/mL (0.32-4.0); Vitamin D 25-OH Total 29.9 ng/mL (>30)
[2023-05-15 11:45] LABS: Appearance Urine Clear; Color Urine Yellow; Glucose Urine UA Negative (Negative); Leukocyte Esterase Urine Small (1+) (Negative); Nitrite Urine Negative (Negative); Specific Gravity - Urine <= 1.005 (1.005-1.025); UMIC TRIGGER UA YES; Urine Blood Negative (Negative); Urine Ketones Negative (Negative); Urine Protein Negative (Neg-Trace)
[2023-05-15 12:01] LABS: Bacteria Urine Trace (None Seen); Hyaline Casts Urine 0-2 /LPF (0-2); RBC Urine 0-2 /HPF (0-2); Squamous Epithelial Cell Urine 0-2 /HPF (0-2); WBC Urine 0-5 /HPF (0-5)
[2023-05-15 12:43] LABS: Folate 8.7 ng/mL (> or = 4.0); Vitamin B12 642 pg/mL (200-900)
[2023-05-17 04:09] LABS: Syphilis Screen Nonreactive (Nonreactive)
[2023-05-17 04:26] LABS: HBc Num1 0.06 S/CO (0.00-0.79); HIV AB/AG Nonreactive (Nonreactive); HIV Num 1 0.05 S/CO (0.00-0.99); Hepatitis B Core Antibody Nonreactive (Nonreactive); ~Hepatitis C Antibody Nonreactive (Nonreactive)
== END 2023-05-15 09:55 | disposition home or self-care (01) ==
LOC: HO.LAB 09:54
PROVIDERS: Absent Provider Advanced Practice Midwife; PCP Internal Medicine; Visit Provider Nurse Practitioner Family
DX: K21.9 Gastro-esophageal reflux disease without esophagitis (principal); E78.00 Pure hypercholesterolemia, unspecified; M54.50 Low back pain, unspecified; M54.89 Other dorsalgia; Z20.2 Contact with and (suspected) exposure to infections with a predominantly sexual mode of transmission
CPT/HCPCS: 36415; 80053; 80061; 81001; 82306; 82607; 82746; 84439; 84443; 85007; 85027; 85652; 86140; 86704; 86780; 86803; 87389

== ENCOUNTER 2023-10-01 09:19 | Outpatient (AMB) | payer OTHER, SELFPAY ==
[2023-10-01 09:21] VITALS: BP 116/70; PULSE 68; O2SAT 98; BMI 22.2
--- NOTE | 2023-10-01 09:21 | MHC.PC.OV ---
Vital Signs 10/01/23 09:21 Height 4 ft 11 in Weight 49.895 kg BMI 22.2 BP 116/70 Blood Pressure Location Lt brachial Position Sitting Pulse 68 Pulse Source Pulse Oximeter Pulse Oximetry (%) 98 Oxygen Delivery Method Room Air Intake Visit Reasons: Dizziness, UTI Symptoms Allergies No Known Allergies Allergy (Verified 10/01/23 09:22) Medication List - Last Reconciled 10/01/23 by Trell Day MD cholecalciferol (vitamin D3) 10 mcg PO DAILY Tobacco use date assessed: 10/01/23 Dental Screening Dental Screen Date: 10/01/23 Did you have a dental visit in the last 12 months?: Yes Did you have a dental problem in the last 6 months where you did not have access to dental care?: No Was dental information given to patient?: Patient has dentist HPI Dizziness HPI Details 43-year-old female with GERD coming in for follow-up. Last seen in February 2023. Patient's mammogram is up-to-date and Pap smear is up-to-date. PAtient has been feeling dizzy an went to urgent center and was rx prednisone ? and augmentin L ear pain ent referral - still pending L ear feels blocked hearing is not bad. patient states alsohaving whitish discharge vaginally PFSH Medical History Angioedema GERD (gastroesophageal reflux disease) Gestational diabetes Hx of abnormal cervical Pap smear Hypercholesterolemia Vitamin D deficiency Surgical History Hx of LASIK No pertinent past surgical history Family History (Updated 03/05/23 @ 13:43 by Trell Day MD) Father CVD (cerebrovascular disease) Mother No problems noted. Sister Nasopharyngeal cancer Social History (Updated 03/05/23 @ 13:44 by Trell Day MD) Housing: House Alcohol intake: current Patient Tobacco Use Status: Never used Tobacco e-Cigarette/Vaping Use: Never Used Second Hand Smoke Exposure: No service: No Current occupational status: unemployed Cognitive needs: No Hearing needs: No Vision needs: No Questionnaire PHQ-9 Over the last 2 weeks, how often have you been bothered by any of the following problems? 1. Little interest or pleasure in doing things: not at all 2. Feeling down, depressed, or hopeless: not at all 3. Trouble falling or staying asleep, or sleeping too much: not at all 4. Feeling tired or having little energy: not at all 5. Poor appetite or overeating: not at all 6. Feeling bad about yourself - or that you are a failure or have let yourself or your family down: not at all 7. Trouble concentrating on things, such as reading the newspaper or watching television: not at all 8. Moving or speaking so slowly that other people could have noticed. Or the opposite - being so fidgety or restless that you have been moving around a lot more than usual: not at all 9. Thoughts that you would be better off or of hurting yourself in some way: not at all Total score: 0 Depression Screening Interpretation: Negative Depression Screening Done: Yes Source: Developed by Drs. Bayron Daugherty, Rosemary Burrows, Elias Villanueva and colleagues, with an educational niecy from [employer]. Thrive Questionnaire Date Thrive assessed: 10/01/23 I am a: Patient What is your living situation today?: I have a steady place to live Within the past 12 months, did the food you bought not last and you didn't have the money to get more?: Never true Within the past 12 months, did you worry whether your food would run out before you got money to buy more?: Never true Do you have trouble paying for medicines?: No Do you have trouble getting transportation to medical appointments?: No Do you have trouble paying your heating and electricity bill?: No Do you have trouble taking care of your child, family member or friend?: No Do you have trouble with day-to-day activities such as bathing, preparing meals, shopping, managing finances, etc.?: No Are you currently unemployed and looking for a job?: No Are you interested in more education?: No Currently or been in a relationship where the following occur: no concerns reported THRIVE Score: 0 AUDIT C Alcohol Use Questionnaire (AUDIT-C) 1. How often do you have a drink containing alcohol?: Monthly or less 2. How many drinks containing alcohol do you have on a typical day when you are drinking?: 1 or 2 3. How often do you have six or more drinks on one occasion?: Never Total Score: 1 LAMINE-7 AMB Questionnaire LAMINE-7 Date LAMINE - 7 assessed: 10/01/23 Feeling nervous, anxious, or on edge: 0 = Not at all Not being able to stop or control worryin = Not at all Worrying too much about different things: 0 = Not at all Trouble relaxin = Not at all Being so restless that it is hard to sit still: 0 = Not at all Becoming easily annoyed or irritable: 0 = Not at all Feeling afraid as if something awful might happen: 0 = Not at all Total LAMINE-7 score (0-4 normal; 5-9 mild; 10-14 moderate; 15-21 severe): 0 Source: Developed by Drs. Bayron Daugherty, Rosemary Burrows, Elias Villanueva and colleagues, with an educational niecy from [employer]. Physical exam (Primary Care) Vital Signs: Last Vital Signs Pulse 68 10/01/23 09:21 BP 116/70 10/01/23 09:21 Pulse Ox 98 10/01/23 09:21 Oxygen Delivery Method Room Air 10/01/23 09:21 BMI result Body Mass Index 22.2 Tobacco/Smoking Status: Tobacco use Status Tobacco use date assessed 10/01/23 10/01/23 09:29 Patient Tobacco Use Status Never used Tobacco 10/01/23 09:29 e-Cigarette/Vaping Use Never Used 10/01/23 09:29 PHQ-9: PHQ-9 Score PHQ-9: Total score 0 10/01/23 09:42 Depression Screening Interpretation: Negative Thrive Assessment: Date of Thrive Assessment Date Thrive assessed 10/01/23 10/01/23 09:29 Currently or been in a relationship where the following occur: no concerns reported Const General: alert; No acute distress Eyes Conjunctivae: conjunctivae normal Resp Auscultation: clear to auscultation bilaterally Cardio Rate: regular rate Rhythm: regular rhythm GI Inspection: Yes normal to inspection Extrem General: Yes normal to inspection and No edema Results AMB Urinalysis, Automated UA Leukoctes 500 Kylie/uL Last Edit by Kathryn Gerardo CMA on 10/01/23 10:51 UA Nitrite Negative Last Edit by Kathryn Gerardo CMA on 10/01/23 10:51 UA Urobilinogen 0.2 mg/dL Last Edit by Kathryn Gerardo, CHANI on 10/01/23 10:51 UA Protein 0 mg/dL Last Edit by Kathryn Gerardo, [employer] on 10/01/23 10:51 UA pH 6.0 Last Edit by Kathryn Gerardo, CHANI on 10/01/23 10:51 UA Blood 0 Norm/uL Last Edit by Kathryn Gerardo, [facility] on 10/01/23 10:51 UA Specific [place] 1.020 Last Edit by Kathryn Gerardo, [facility] on 10/01/23 10:51 UA Ketone Negative Last Edit by Kathryn Gerardo, [employer] on 10/01/23 10:51 UA Bilirubin 0 mg/dL Last Edit by Kathryn Gerardo, [employer] on 10/01/23 10:51 UA Glucose 0 mg/dL Last Edit by Kathryn Gerardo, [employer] on 10/01/23 10:51 Assessment and Plan Assessment & Plan (1) GERD (gastroesophageal reflux disease): Code(s): K21.9 - Gastro-esophageal reflux disease without esophagitis Qualifiers: Esophagitis presence: without esophagitis Qualified Code(s): K21.9 - Gastro-esophageal reflux disease without esophagitis Plan: Avoid the foods that causes that usually spicy foods, tomato products, juices, coffee, soda and foods that your sensitive to. After eating do not lie down, allow 3-4 hours before in lie down. And keep the head of bed above 30 degrees to avoid the acid from going up. (2) Hypercholesterolemia: Code(s): E78.00 - Pure hypercholesterolemia, unspecified Plan: Avoid fried foods, chicken skin, eggs, butter margarine, pastries and meat. Be it pork or beef they have a lot of cholesterol (3) Allergic rhinitis: Code(s): J30.9 - Allergic rhinitis, unspecified Plan: a (4) Vaginal candidiasis: Code(s): B37.31 - Acute candidiasis of vulva and vagina Plan: discussed about cause of this post antibiotic (5) Numbness of left hand: Code(s): R20.0 - Anesthesia of skin Plan: advised to have the nerve condution test (6) Colon cancer screening: Code(s): Z12.11 - Encounter for screening for malignant neoplasm of colon Orders: Orders NE nerve conduction velocity Today R20.0 - Anesthesia of skin AMB Urinalysis Automated Today N39.0 - Urinary tract infection, site not specified NE electromyogram (EMG) Today R20.0 - Anesthesia of skin Referrals Gastroenterology Referral Z12.11 - Encounter for screening for malignant neoplasm of colon Medications: New fluconazole 150 mg PO ONCE 1 tab 0RF 1 day B37.31 - Acute candidiasis of vulva and vagina loratadine (Claritin) 10 mg PO DAILY 30 tabs 12RF J30.9 - Allergic rhinitis, unspecified Coding Level of Care Code Est Pt Level 4 (44420) Diagnoses Gastroesophageal reflux disease without esophagitis K21.9 Esophagitis presence: without esophagitis Hypercholesterolemia E78.00 Allergic rhinitis J30.9 Vaginal candidiasis B37.31 Numbness of left hand R20.0 Colon cancer screening Z12.11
== END 2023-10-01 10:11 | disposition home or self-care (01) ==
PROVIDERS: PCP Internal Medicine; Visit Provider Internal Medicine
DX: N39.0 Urinary tract infection, site not specified (principal); K21.9 Gastro-esophageal reflux disease without esophagitis; B37.31 Acute candidiasis of vulva and vagina; R20.0 Anesthesia of skin; E78.00 Pure hypercholesterolemia, unspecified; J30.9 Allergic rhinitis, unspecified
CPT/HCPCS: 81003; 99214

== ENCOUNTER 2023-10-05 09:33 | Outpatient (AMB) | payer OTHER, SELFPAY ==
--- NOTE | 2023-10-05 09:42 | A.OFFVIS_ITS ---
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 Doing well with no concerns: Small irritation under her left breast using a topical cream. Occasional left-sided axillary, upper flank chest wall and left breast discomfort for many years, uncertain certain if it is from exercise as she was told in the past that it might be from that cause, not present today. Recently treated for Diflucan and Monistat for itching, currently on Augmentin and prednisone for ear issues. Reports itching around the perianal region, history of hemorrhoids. She tries to eat healthy vegetarian, and stays active with exercise at the [facility]. Regular monthly menses x 3-4d, closely spaced at times 19-27d apart over the lat few months, usully her cycles ar 24d apart. TSH and CBC normal 04/2023. Uses copper IUD. Currently is sexually active, no PCB. occasional pain after. She denies vaginal itching and irritation. Denies family history of breast, ovarian or colon cancer. Last pap smear 2022, negative. Prior COLE 1 in 2019 multiple Pap x3, negative since. Mammogram: [facility] Medical History (Updated 10/05/23 @ 10:09 by Gisela Valentin CNM) Encounter for well woman exam with routine gynecological exam Hx of abnormal cervical Pap smear Hypercholesterolemia GERD (gastroesophageal reflux disease) Angioedema Gestational diabetes Vitamin D deficiency Surgical History Hx of LASIK No pertinent past surgical history Family History Father CVD (cerebrovascular disease) Mother No problems noted. Sister Nasopharyngeal cancer Social History Housing: House Alcohol intake: current Patient Tobacco Use Status: Never used Tobacco e-Cigarette/Vaping Use: Never Used Second Hand Smoke Exposure: No service: No Current occupational status: unemployed Cognitive needs: No Hearing needs: No Vision needs: No Female Reproductive History Menstrual Date of last menstrual period: 09/18/23 control method: copper IUCD (Paragard 2017) Total pregnancies: 3 Full term: 2 Number of Living Children: 2 Date of last pap smear: 09/10/22 (neg pap and hpv) History of abnormal pap smear: Yes (06/19 lgsil +hpv 09/17 colpo cole 1 06/20 neg,neg 09/19 neg,neg) Date of Mammogram: 03/18/23 (Birad 1) Review of Systems Const All systems reviewed & are unremarkable except as noted in HPI and below Reports as per HPI Eyes Reports no additional complaints ENT Reports no additional complaints Card Reports no additional complaints Resp Reports no additional complaints GI Reports as per HPI and Reports no additional complaints Reports as per HPI Musc Reports no additional complaints Skin/Breast Reports as per HPI Neuro Reports no additional complaints Psych Reports no additional complaints Endo Reports no additional complaints Patrick/Lymph Reports no additional complaints Aller/Immun Reports no additional complaints Physical Exam Vital Signs: Last Vital Signs BP 94/62 10/05/23 09:44 BMI result Body Mass Index 22.0 Const General: cooperative, healthy appearing, no acute distress, well developed and alert Orientation/consciousness: patient oriented x3 HEENT Head: Yes normal to inspection Eyes General: appearance normal, both eyes and all related structures Neck Neck: Yes normal visual inspection Thyroid: Thyroid normal Chest Other: Mild erythema on the broad line under the left breast. Chest palpation & inspection: normal inspection of the chest and other (no puckering, dimpling, peau de orange, retraction, discharge, masses) Breast/axilla inspection: normal inspection of the breasts Breast/axilla palpation: normal palpation of the breasts Resp Effort & Inspection: normal respiratory effort GI Inspection: Yes normal to inspection Palpation (GI): Soft to palpation Rectal Exam - Female: deferred General: Yes bladder normal to palpation External Female Exam: normal external appearance and normal appearance of the urethra Speculum Exam - Vagina: normal appearance of the vagina, normal palpation and normal vaginal discharge Speculum Exam - Cervix: normal appearance of the cervix and normal palpation Bimanual exam- vagina & uterus: normal bimanual exam, normal palpation, uterine size normal, bladder normal to palpation, normal palpation and non-tender Bimanual Exam- Adnexa, other: no masses Skin General skin exam: no rashes or lesions noted Rashes: no rashes Neuro General: patient oriented x3 Cognition (Neuro): normal cognition Extrem General: Yes normal to inspection Psych Attitude: cooperative Thought process: Normal thought process present Results AMB Urinalysis, Automated UA Leukoctes 0 Kylie/uL Last Edit by VERONICA Olivares on 10/05/23 09:59 UA Nitrite Negative Last Edit by VERONICA Olivares on 10/05/23 09:59 UA Urobilinogen 0 mg/dL Last Edit by VERONICA Olivares on 10/05/23 09:5 9 UA Protein 0 mg/dL Last Edit by VERONICA Olivares on 10/05/23 09:59 UA pH 6.0 Last Edit by VERONICA Olivares on 10/05/23 09:59 UA Blood 0 Norm/uL Last Edit by VERONICA Olivares on 10/05/23 09:59 UA Specific [place] 1.005 Last Edit by VERONICA Olivares on 10/05/23 09:59 UA Ketone Negative Last Edit by VERONICA Olivares on 10/05/23 09:59 UA Bilirubin 0 mg/dL Last Edit by VERONICA Olivares on 10/05/23 09:59 UA Glucose 0 mg/dL Last Edit by VERONICA Olivares on 10/05/23 09:59 Results Reviewed Results Reviewed: Laboratory Last Values Urine pH (Auto) 6.0 10/05/23 09:58 Specific [place] (Auto) 1.005 10/05/23 09:58 Urine Protein (Auto) 0 mg/dL 10/05/23 09:58 Glucose (UA)(Auto) 0 mg/dL 10/05/23 09:58 Urine Ketones (Auto) Negative 10/05/23 09:58 Urine Blood (Auto) 0 Norm/uL 10/05/23 09:58 Urine Nitrite (Auto) Negative 10/05/23 09:58 Urine Bilirubin (Auto) 0 mg/dL 10/05/23 09:58 Urine Urobilinogen (Auto) 0 mg/dL 10/05/23 09:58 Leukocyte Esterase (Auto) 0 Kylie/uL 10/05/23 09:58 Assessment & Plan Assessment & Plan (1) Encounter for well woman exam with routine gynecological exam: Code(s): Z01.419 - Encounter for gynecological examination (general) (routine) without abnormal findings Category: Medical Plan: Discussed: Current recommendations for pap smears per ASCCP guidelines. Breast awareness and periodic breast exams. Maintain a healthy lifestyle including a well balanced diet and routine exercise. Ultrasound workup due closely spaced periods, consider alternative options for BC cycle control. Follow up pending ultrasound findings in-person to discuss plan of care. Discuss care for cleaning the bras, not wearing underwire bras and use of a sports bra. Plan breast ultrasound and then follow up to discuss test results. [id number] self-help remedies for hemorrhoids, if hemorrhoids are bothersome or enlarged painful call the office for a referral for a further evaluation. Mammogram yearly. Colonoscopy >45, or at risk sooner. Await for BV results for plan of care for any further treatment of vulvar irritation. Patient verbalizes understanding and agrees to the plan of care. She was given opportunity to ask questions and all questions were answered to the best of my ability. 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 This note is constructed using voice recognition software. While every effort has been made to ensure accuracy, field professional errors may have been included. Orders: Orders AMB Urinalysis Automated Today N94.9 - Unspecified condition associated with female genital organs and menstrual cycle US pelvic and transvaginal Today N92.6 - Irregular menstruation, unspecified, Z30.431 - Encounter for routine checking of intrauterine contraceptive device Bacterial Vaginosis Panel Today N89.8 - Other specified noninflammatory disorders of vagina US breast LT complete Today N64.4 - Mastodynia Coding Level of Care Code Est Pt Prev Care 40-64y(30263) Diagnoses Encounter for well woman exam with routine gynecological exam Z01.419
[2023-10-05 09:44] VITALS: BP 94/62; BMI 22.0
== END 2023-10-05 10:39 | disposition home or self-care (01) ==
PROVIDERS: Visit Provider Advanced Practice Midwife
DX: Z01.419 Encounter for gynecological examination (general) (routine) without abnormal findings (principal); N94.9 Unspecified condition associated with female genital organs and menstrual cycle
CPT/HCPCS: 99396

== ENCOUNTER 2023-10-05 09:33 | Outpatient (REF) | payer OTHER, SELFPAY ==
[2023-10-06 09:26] LABS: BV Int Neg Control Negative (Negative); BV Int Pos Control Positive (Positive)
== END 2023-10-05 09:34 | disposition home or self-care (01) ==
LOC: HO.LAB 09:33
PROVIDERS: Visit Provider Advanced Practice Midwife
DX: Z01.419 Encounter for gynecological examination (general) (routine) without abnormal findings (principal); N89.8 Other specified noninflammatory disorders of vagina
CPT/HCPCS: 81003; 87480; 87510; 87660; 99396

== ENCOUNTER 2023-10-08 12:56 | Outpatient (REF) | payer OTHER, SELFPAY ==
--- NOTE | ~2023-10-08 | US_ITS ---
EXAMINATION: US PELVIS COMPLETE CLINICAL INFORMATION: Irregular menstruation COMPARISON: Pelvic ultrasound 11/29/2020 TECHNIQUE: Transabdominal and transvaginal imaging was performed. FINDINGS: The uterus is of normal size and echogenicity measuring 8.2 x 4.0 x 5.9 cm. A regular homogeneous endometrium is identified measuring 0.9 cm. Trace fluid in the endometrial canal. Intrauterine device in place. Uterus is retroverted in position. New 5 mm cystic focus in the myometrium which could be seen in the setting of adenomyosis. New 5 mm intramural myoma in the right body of the uterus. 1.1 cm intramural myoma in the right body of the uterus similar to prior previously 1 cm. Both ovaries are of normal size and echogenicity. The right measures 4.4 x 1.7 x 1.5 cm for a volume of 5.9 mL. The left measures 3.4 x 1.6 x 2.2 cm for a volume of 6.3 mL. There is trace simple physiologic volume pelvic free fluid. US/US pelvic and transvaginal IMPRESSION: 1. Intrauterine device in place. 2. Trace fluid in the endometrial canal. Endometrium measures 9 mm in thickness. 3. New 5 mm cystic focus in the myometrium which could be seen in the setting of adenomyosis. 4. Myomatous uterus as detailed above.
== END 2023-10-08 12:57 | disposition home or self-care (01) ==
LOC: HO.US 12:56
PROVIDERS: PCP Internal Medicine; Visit Provider Advanced Practice Midwife
DX: Z30.431 Encounter for routine checking of intrauterine contraceptive device (principal); N92.6 Irregular menstruation, unspecified
CPT/HCPCS: 76830; 76856

== ENCOUNTER → 2023-10-11 08:30 | Outpatient (BNV) | payer OTHER, SELFPAY | PROVIDERS: PCP Internal Medicine; Visit Provider Radiology Diagnostic Radiology | DX: N64.4 Mastodynia (principal) | CPT/HCPCS: 76642; 77061; 77065 ==

== ENCOUNTER 2023-10-11 08:34 | Outpatient (REF) | payer OTHER, SELFPAY ==
--- NOTE | ~2023-10-11 | MM_ITS ---
EXAMINATION: MM DIAGNOSTIC DIGITAL BREAST TOMOSYNTHESIS, LEFT US BREAST LIMITED, LEFT MAMMOGRAPHY: CLINICAL INFORMATION: The patient presents for evaluation of diffuse left breast and left axillary pain. COMPARISON: Mammography: This study is compared with prior breast imaging dating back to 2019. TECHNIQUE: Digital breast tomosynthesis is performed in both the craniocaudal and mediolateral oblique views along with computer-aided detection (CAD). Synthesized 2D images are generated from the tomosynthesis. A full lateral view of the left breast is obtained. FINDINGS: The breasts are heterogeneously dense, which may obscure small masses (ACR BI-RADS breast composition Category c). There are no significant masses, abnormal calcifications, or other abnormalities. ULTRASOUND: CLINICAL INFORMATION: The patient presents for evaluation of diffuse left breast and left axillary pain. COMPARISON: None TECHNIQUE: Targeted whole left breast and left axillary sonographic evaluation was performed using a high frequency linear transducer. FINDINGS: LEFT BREAST: The left breast and left axilla are sonographically normal. MM/MM tomosynthesis diagnostic LT IMPRESSION: No mammographic or sonographic abnormalities of of the left breast and left axilla. OVERALL ASSESSMENT: Mammography: BI-RADS 1 - Negative Ultrasound: BI-RADS 1 - Negative RECOMMENDATION: 1. Patient should be managed based on the clinical impression. 2. Otherwise, routine annual screening mammography. Results were provided to the patient at time of visit by the technologist. This patient's information was entered into a reminder system with a target due date for their next mammogram.
== END 2023-10-11 08:35 | disposition home or self-care (01) ==
LOC: HO.MAMMO 08:34
PROVIDERS: PCP Internal Medicine; Visit Provider Advanced Practice Midwife
DX: N64.4 Mastodynia (principal)
CPT/HCPCS: 76642; 77061; 77065

== ENCOUNTER 2023-10-20 15:00 | Outpatient (REF) | payer OTHER, SELFPAY ==
--- NOTE | 2023-10-20 15:03 | EMG_ITS ---
Chief complaint: Left arm pain Reason for referral: Evaluate for Carpal Tunnel Syndrome versus radiculopathy Referred by: Dr. Day Procedure done: Left upper extremity NCS/EMG Precautions and/or limitations: None The limb temperature was monitored continuously and remained between 32-36 degrees C during the performance of the NCS. Nerve Conduction Studies Anti Sensory Summary Table ?Stim Site NR Onset (ms) Norm Onset (ms) Peak (ms) Norm Peak (ms) O-P Amp (?V) Norm O-P Amp Site1 Site2 Delta-0 (ms) Dist (cm) Daniel (m/s) Norm Daniel (m/s) Left Median Anti Sensory (2nd Digit) Wrist ? 2.2 3.3 <3.6 76.9 >10 Wrist 2nd Digit 2.2 14.0 64 Left Ulnar Anti Sensory (5th Digit) Wrist ? 2.2 2.9 <3.7 53.7 >15.0 Wrist 5th Digit 2.2 14.0 64 Motor Summary Table ?Stim Site NR Onset (ms) Norm Onset (ms) O-P Amp (mV) Norm O-P Amp iAmp (mV) Amp (1st) (%) Site1 Site2 Delta-0 (ms) Dist (cm) Daniel (m/s) Norm Daniel (m/s) Left Median Motor (Abd Poll Brev) Wrist ? 3.6 <3.9 9.1 >4.5 10.9 100.0 Elbow Wrist 2.9 18.0 62 >45 Elbow ? 6.5 8.9 10.3 97.8 Left Ulnar Motor (Abd Dig Minimi) Wrist ? 2.4 <3.0 7.4 >5 8.8 100.0 B Elbow Wrist 2.4 15.0 63 >45 B Elbow ? 4.8 6.3 7.6 85.1 A Elbow B Elbow 1.8 10.0 56 >45 A Elbow ? 6.6 6.0 7.4 81.1 Comparison Summary Table ?Stim Site NR Peak (ms) Norm Peak (ms) P-T Amp (?V) Site1 Site2 Delta-P (ms) Norm Delta (ms) Left Median/Radial Dig I Comparison (Digit 1 - 10cm) Median ? 2.8 <2.9 152.2 Median Radial -0.1 Radial ? 2.9 <2.8 128.7 EMG ?Side Muscle Nerve Root Ins Act Fibs Psw Amp Dur Poly Recrt Int Pat Comment Left 1stDorInt Ulnar C8-T1 Nml Nml Nml Nml Nml 0 Nml Complete Left FlexCarRad Median C6-7 Nml Nml Nml Nml Nml 0 Nml Complete Left Biceps Musculocut C5-6 Nml Nml Nml Nml Nml 0 Nml Complete Left Triceps Radial C6-7-8 Nml Nml Nml Nml Nml 0 Nml Complete Left Deltoid Axillary C5-6 Nml Nml Nml Nml Nml 0 Nml Complete FINDINGS: All motor and sensory nerves tested showed normal latencies, amplitudes and conduction velocities. Concentric needle EMG was performed in selected muscles of the left upper extremity. Study did not reveal signs of electric abnormalities as shown in the table below. IMPRESSION: 1. This is a normal study. 2. There is no electrodiagnostic evidence for median neuropathy, ulnar neuropathy, brachial plexopathy, or cervical radiculopathy. Thank you for your kind referral. Sommer Smith MD, [place] Board Certified, [place] Board of Physical Medicine and Rehabilitation (ABPMR) Board Certified, [place] Board of Electrodiagnostic Medicine (ABEM) CODIN [id number] MTDD
== END 2023-10-20 15:01 | disposition home or self-care (01) ==
LOC: HO.NEURO 15:00
PROVIDERS: PCP Internal Medicine; Visit Provider Internal Medicine
DX: R20.0 Anesthesia of skin (principal)
CPT/HCPCS: 95886; 95909

== ENCOUNTER → 2023-10-20 15:03 | Outpatient (BNV) | payer OTHER, SELFPAY | PROVIDERS: PCP Internal Medicine; Visit Provider Physical Medicine & Rehabilitation | DX: M79.602 Pain in left arm (principal) | CPT/HCPCS: 95886; 95909 ==

== ENCOUNTER 2023-11-22 13:01 | Outpatient (AMB) | payer OTHER, SELFPAY ==
[2023-11-22 13:06] VITALS: BP 108/60; PULSE 89; O2SAT 99; BMI 22.1
--- NOTE | 2023-11-22 13:06 | A.OFFVIS_ITS ---
Vital Signs 11/22/23 13:06 Height 4 ft 11 in Weight 109 lb 5.588 oz BMI 22.1 BP 108/60 Blood Pressure Location Rt brachial Position Sitting Pulse 89 Pulse Source Pulse Oximeter Pulse Oximetry (%) 99 Oxygen Delivery Method Room Air Intake Visit Reasons: IA Intake Note: Pt previously seen by Denise Johnson presents today for follow up visit. She states she has an autoimmune disorder and would like her labs checked. She will be traveling to [facility] on Wednesday. 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 She was last seen by Stefany Johnson in 2021. Patient states that she gets pain in her left shoulder posteriorly, intermittent neck pain, low back pain intermittently radiating to her left buttock and left lower extremity. She states that she gets herbal treatments in [place] helped. She would like to check her inflammatory markers she denies any swollen joints. Denies any significant morning stiffness. Denies any history suggestive of uveitis. 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 Sister Nasopharyngeal cancer Social History Housing: House Alcohol intake: current Patient Tobacco Use Status: Never used Tobacco e-Cigarette/Vaping Use: Never Used Second Hand Smoke Exposure: No service: No Current occupational status: unemployed Cognitive needs: No Hearing needs: No Vision needs: No Female Reproductive History Menstrual Date of last menstrual period: 09/18/23 control method: copper IUCD (Paragard 2017) Total pregnancies: 3 Full term: 2 Number of Living Children: 2 Date of last pap smear: 09/10/22 (neg pap and hpv) History of abnormal pap smear: Yes (06/19 lgsil +hpv 09/17 colpo leeann 1 06/20 neg,neg 09/19 neg,neg) Date of Mammogram: 03/18/23 (Birad 1) Review of Systems [facility] [place] Reports back pain, Reports arthralgias and Reports radiating pain into limb Physical Exam Vital Signs: Last Vital Signs Pulse 89 11/22/23 13:06 BP 108/60 11/22/23 13:06 Pulse Ox 99 11/22/23 13:06 Oxygen Delivery Method Room Air 11/22/23 13:06 BMI result Body Mass Index 22.1 Const General: cooperative, healthy appearing and comfortable Nutritional Appearance: average body habitus Orientation/consciousness: patient oriented x3 Limitations: no limitations HEENT Head: Yes normocephalic and Yes atraumatic Mouth: moist mucous membranes Resp Effort & Inspection: normal respiratory effort and able to speak in complete sentences Auscultation: clear to auscultation bilaterally Cardio Rate: regular rate Rhythm: regular rhythm Skin General skin exam: no rashes or lesions noted Neuro General: patient oriented x3 Extrem Other: No active synovitis Positive empty can test on the left Normal Range of motion of neck Negative straight leg raise test bilaterally Negative Fabere test bilaterally Left lumbar paraspinal muscle tenderness Assessment & Plan Assessment & Plan (1) HLA B27 (HLA B27 positive): Code(s): Z15.89 - Genetic susceptibility to other disease Category: Medical Plan: This is a 43-year-old female who presents for a follow-up. Previously patient was evaluated for low back pain. She has a positive HLA B27, mildly elevated inflammatory markers, MRI pelvis did not show sacroiliitis. Upon evaluation her symptoms are mechanical and degenerative in nature. Symptoms not consistent with inflammatory arthritis. No further workup needed today I had a long conversation with patient about symptoms and signs that are suggestive of autoimmune rheumatic disease. PT ordered for degenerative spine disease Follow-up p.r.n. (2) Rotator cuff arthropathy of left shoulder: Code(s): M12.812 - Other specific arthropathies, not elsewhere classified, left shoulder Category: Medical Plan: PT ordered Plan I spent 30 minutes reviewing patient's chart, evaluating patient, placing orders,, counseling patient and documenting in the chart Orders: Orders PT Evaluation and Treatment Today M12.812 - Other specific arthropathies, not elsewhere classified, left shoulder, M46.1 - Sacroiliitis, not elsewhere classi fied, M50.30 - Other cervical disc degeneration, unspecified cervical region Coding Level of Care Code Est Pt Level 4 (84766) Diagnoses HLA B27 (HLA B27 positive) Z15.89 Rotator cuff arthropathy of left shoulder M12.812
== END 2023-11-22 13:42 | disposition home or self-care (01) ==
PROVIDERS: PCP Internal Medicine; Visit Provider Student in an Organized Health Care Education/Training Program
DX: Z15.89 Genetic susceptibility to other disease (principal); M12.812 Other specific arthropathies, not elsewhere classified, left shoulder
CPT/HCPCS: 99214

== ENCOUNTER → 2023-11-22 13:01 | Outpatient (BNVA) | payer OTHER, SELFPAY | PROVIDERS: PCP Internal Medicine; Visit Provider Student in an Organized Health Care Education/Training Program | DX: Z15.89 Genetic susceptibility to other disease (principal); M12.812 Other specific arthropathies, not elsewhere classified, left shoulder | CPT/HCPCS: 99212 ==

== ENCOUNTER 2024-03-28 15:53 | Outpatient (AMB) | payer OTHER, SELFPAY ==
[2024-03-28 15:57] VITALS: BP 102/64; PULSE 71; O2SAT 100; BMI 21.6
--- NOTE | 2024-03-28 15:57 | A.OFFPC_ITS ---
Vital Signs 03/28/24 15:57 Height 4 ft 11 in Weight 107 lb 0.4 oz BMI 21.6 BP 102/64 Blood Pressure Location Lt brachial Position Sitting Pulse 71 Pulse Source Pulse Oximeter Pulse Oximetry (%) 100 Oxygen Delivery Method Room Air Intake Visit Reasons: annual exam Intake Note: Patient is here today for a physical. Allergies No Known Allergies Allergy (Verified 03/28/24 16:11) Medication List - Last Reconciled 03/28/24 by Jen Gamino PA-C cholecalciferol (vitamin D3) 10 mcg PO DAILY cyclobenzaprine 5 mg PO BEDTIME PRN fexofenadine (Omaira Allergy) 180 mg PO DAILY Tobacco use date assessed: 10/01/23 Dental Screening Dental Screen Date: 10/01/23 Did you have a dental visit in the last 12 months?: Yes Did you have a dental problem in the last 6 months where you did not have access to dental care?: No Was dental information given to patient?: Patient has dentist HPI annual exam HPI Details 43-year-old female with GERD last seen b [facility] Day september 2023 coming in for annual exam. Patient's mammogram and Pap smear is up-to-date. In review of the notes, patient was seen by Rheumatology 11/22/2023 diagnosed with autoimmune rhe umatic disease ordered for physical therapy and advised to follow up as needed. Patient states she has been having left shoulder pain for the past several months. She was advised to undergo PT by rheumatology but was unable to do so due to family stress. She is going to reschedule these appointments at her earliest availability. She also mentions having vaginal discharge and discomfort with urination which began last week. Patient also complaining of waking up in the middle of the night with choking episodes and feeling shortness of breath. [facility] Medical History Fibroid Encounter for well woman exam with routine gynecological exam Hx of abnormal cervical Pap smear Hypercholesterolemia GERD (gastroesophageal reflux disease) Angioedema Gestational diabetes Vitamin D deficiency Surgical History Hx of LASIK No pertinent past surgical history Family History Father CVD (cerebrovascular disease) Mother No problems noted. Sister Nasopharyngeal cancer Social History Housing: House Alcohol intake: current Patient Tobacco Use Status: Never used Tobacco e-Cigarette/Vaping Use: Never Used Second Hand Smoke Exposure: No service: No Current occupational status: unemployed Cognitive needs: No Hearing needs: No Vision needs: No Questionnaire PHQ-9 Over the last 2 weeks, how often have you been bothered by any of the following problems? 1. Little interest or pleasure in doing things: not at all 3. Trouble falling or staying asleep, or sleeping too much: several days 4. Feeling tired or having little energy: several days 5. Poor appetite or overeating: not at all 6. Feeling bad about yourself - or that you are a failure or have let yourself or your family down: not at all 7. Trouble concentrating on things, such as reading the newspaper or watching television: not at all 8. Moving or speaking so slowly that other people could have noticed. Or the opposite - being so fidgety or restless that you have been moving around a lot more than usual: not at all 9. Thoughts that you would be better off or of hurting yourself in some way: not at all Depression Screening Interpretation: Negative Depression Screening Done: Yes 37920 - PHQ-9 Billing: Yes Source: Developed by Drs. Bayron Daugherty, Rosemary Burrows, Elias Villanueva and colleagues, with an educational niecy from [employer]. Thrive Questionnaire Date Thrive assessed: 10/01/23 I am a: Patient What is your living situation today?: I choose not to answer this question Within the past 12 months, did the food you bought not last and you didn't have the money to get more?: I choose not to answer this question Within the past 12 months, did you worry whether your food would run out before you got money to buy more?: I choose not to answer this question Do you have trouble paying for medicines?: I choose not to answer this question Do you have trouble getting transportation to medical appointments?: I choose not to answer this question Do you have trouble paying your heating and electricity bill?: I choose not to answer this question Do you have trouble taking care of your child, family member or friend?: I choose not to answer this question Do you have trouble with day-to-day activities such as bathing, preparing meals, shopping, managing finances, etc.?: I choose not to answer this question Are you currently unemployed and looking for a job?: I choose not to answer this question Are you interested in more education?: I choose not to answer this question Please select the resources that you would like help with: None Currently or been in a relationship where the following occur: I choose not to answer THRIVE Score: 0 AUDIT C Alcohol Use Questionnaire (AUDIT-C) 1. How often do you have a drink containing alcohol?: 2-4 times a month 2. How many drinks containing alcohol do you have on a typical day when you are drinking?: 1 or 2 3. How often do you have six or more drinks on one occasion?: Never Total Score: 2 LAMINE-7 AMB Questionnaire LAMINE-7 Date LAMINE - 7 assessed: 03/28/24 Feeling nervous, anxious, or on edge: 0 = Not at all Not being able to stop or control worryin = Not at all Worrying too much about different things: 1 = Several days Trouble relaxin = Several days Being so restless that it is hard to sit still: 1 = Several days Becoming easily annoyed or irritable: 1 = Several days Feeling afraid as if something awful might happen: 1 = Several days Total LAMINE-7 score (0-4 normal; 5-9 mild; 10-14 moderate; 15-21 severe): 5 Source: Developed by Drs. Bayron Daugherty, Rosemary Burrows, Elias Villanueva and colleagues, with an educational niecy from [employer]. LAMINE-7 Assessment Billing LAMINE-7 Assessment Tool: LAMINE-7 Assessment 04458 Review of Systems Const Denies body aches, Denies fatigue, Denies fever(s), Denies frequent falls, Denies headache(s) and Denies weakness Eyes Reports no additional complaints and Denies change in vision ENT Details: ears popping since plane ride Denies dysphagia, Denies dizziness, Denies facial pain, Denies headache(s), Denies nasal congestion and Denies odynophagia Card Denies chest pain, Denies syncope, Denies irregular heart rhythm, Denies leg edema, Denies lightheadedness and Denies dyspnea Resp Denies cough and Denies dyspnea GI Reports abdominal pain (suprapubic pain ), Denies constipation, Denies dysp hagia, Denies dyspepsia, Denies diarrhea, Denies nausea, Denies odynophagia and Denies vomiting Details: vaginal discharge Denies urinary frequency, Denies dysuria, Reports urinary hesitancy and Denies urinary urgency Musc Denies back pain and Denies myalgias Skin/Breast Reports system reviewed and no additional complaints, except as documented Neuro Denies dizziness, Denies syncope, Denies frequent falls, Denies headache(s) and Denies weakness Psych Reports no additional complaints Endo Denies fatigue Physical exam (Primary Care) Vital Signs: Last Vital Signs Pulse 71 03/28/24 15:57 BP 102/64 03/28/24 15:57 Pulse Ox 100 03/28/24 15:57 Oxygen Delivery Method Room Air 03/28/24 15:57 BMI result Body Mass Index 21.6 Tobacco/Smoking Status: Tobacco use Status Tobacco use date assessed 10/01/23 03/28/24 15:58 Patient Tobacco Use Status Never used Tobacco 03/28/24 15:58 e-Cigarette/Vaping Use Never Used 03/28/24 15:58 Depression Screening Interpretation: Negative Thrive Assessment: Date of Thrive Assessment Date Thrive assessed 10/01/23 03/28/24 15:58 Currently or been in a relationship where the following occur: I choose not to answer Const General: cooperative, healthy appearing, comfortable and no acute distress Orientation/consciousness: patient oriented x3 HENMT Head: Yes normocephalic Ears: hearing grossly normal bilaterally, external ears normal, TM's normal bilaterally and EAC's normal General nose exam: Normal external nose present Face and sinus: Yes normal facial exam and Yes sinuses nontender Mouth: Normal oral and palatal mucosa present and tongue normal Throat: Yes posterior oropharynx normal Eyes General: appearance normal, both eyes and all related structures Conjunctivae: conjunctivae normal Pupils: Equal, round and reactive pupils present EOM: EOMs intact bilaterally and No Nystagmus present Neck Neck: Yes normal visual inspection, Yes full ROM and Yes no lymphadenopathy Chest Chest palpation & inspection: normal inspection of the chest Resp Effort & Inspection: normal respiratory effort Auscultation: clear to auscultation bilaterally, no crackles, no rales, no rhonchi, no wheezes and breath sounds present Cardio Rate: regular rate Rhythm: regular rhythm Peripheral pulses: radial pulses present and dorsalis pedis present GI Other: suprapubic tenderness to palpation Inspection: Yes normal to inspection and No Abdominal wall edema Palpation (GI): Soft to palpation, not firm and nontender Auscultation: normal bowel sounds Rectal Exam - Female: deferred General: Yes no CVA tenderness Back/Spine/Pelvis Back: no CVA tenderness Skin General skin exam: no rashes or lesions noted Neuro General: patient oriented x3 Cranial nerves: Yes Equal, round and reactive pupils present, Yes Midline tongue present, Yes Ability to bilaterally elevate shoulders present and No Nystagmus present Gait exam (Neuro): Normal gait present Extrem General: Yes normal to inspection, Yes full ROM, No no pedal edema and No edema Psych Speech and movement: Normal speech and movement present Affect: normal affect Insight: Good insight present (Psych) Judgement: Good judgement present (Psych) Coding Level of Care Code Est Pt Level 3 (65492) Est Pt Prev Care 40-64y(46521) Diagnoses Hypersomnia G47.10 Vaginal discharge N89.8 Rotator cuff arthropathy of left shoulder M12.812 Generalized anxiety disorder F41.1 Annual physical exam Z00.00 Hypercholesterolemia E78.00 Additional Codes LAMINE-7 Assessment Billing - LAMINE-7 Assessment Tool: LAMINE-7 Assessment 54951 ([id number]) Assessment & Plan Assessment & Plan (1) Hypersomnia: Code(s): G47.10 - Hypersomnia, unspecified Category: Medical Plan: Ordered for home sleep study test for further evaluation of obstructive sleep apnea. (2) Vaginal discharge: Code(s): N89.8 - Other specified noninflammatory disorders of vagina Category: Medical Plan: Ordered for bacterial vaginosis panel and urinalysis for further evaluation. (3) Rotator cuff arthropathy of left shoulder: Code(s): M12.812 - Other specific arthropathies, not elsewhere classified, left shoulder Category: Medical Plan: Advised patient to continue with physical therapy as recommended by Rheumatology. (4) Generalized anxiety disorder: Code(s): F41.1 - Generalized anxiety disorder Category: Medical Plan: Not currently on medical management and declines the need for medication or counseling at this time. (5) Annual physical exam: Code(s): Z00.00 - Encounter for general adult medical examination without abnormal findings Category: Medical Plan: Patient is up-to-date on all recommended routine screenings and vaccinations for her age. Ordered for updated blood work and follow up in 1 year or sooner if new problems arise. (6) Hypercholesterolemia: Code(s): E78.00 - Pure hypercholesterolemia, unspecified Category: Medical Plan: Avoid foods that are high in cholesterol such as red meat, fried foods, eggs and baked goods. Triglyceride goal of less than 150 and LDL goal of less than 130. Not currently on medical management, ordered for updated blood work. Plan This note was constructed using voice recognition software. While every effort has been made to ensure accuracy and health information director, still areas may have been included sometimes these areas may affect the content or meeting of the given symptoms. Total time spent caring for the patient today was 30 minutes. This includes time spent before the visit reviewing the chart, time spent during the visit, and time spent after the visit and documentation. Orders: Orders PT Evaluation and Treatment 03/28/24 M12.812 - Other specific arthropathies, not elsewhere classified, left shoulder, M46.1 - Sacroiliitis, not elsewhere classified, M50.30 - Other cervical disc degeneration, unspecified cervical region Erythrocyte Sedimentation Rate 03/28/24 M54.89 - Other dorsalgia Complete Blood Count Auto Diff 03/28/24 K21.9 - Gastro-esophageal reflux disease without esophagitis Comprehensive Met. Panel 03/28/24 Z. - Encounter for general adult medical examination without abnormal findings Free T4 (Free Thyroxine) 03/28/24 Z. - Encounter for general adult medical examination without abnormal findings Vitamin D 25-OH (D2 and D3) 03/28/24.00 - Encounter for general adult medical examination without abnormal findings UA CC w/rflx Micro + Cult 03/28/24 R35.89 - Other polyuria Vitamin B12 and Folate 03/28/24. - Encounter for general adult medical examination without abnormal findings C Reactive Protein 03/28/24 M54.89 - Other dorsalgia Lipid Panel 03/28/24. - Encounter for general adult medical examination without abnormal findings TSH reflex Free T4 03/28/24.00 - Encounter for general adult medical examination without abnormal findings Bacterial Vaginosis Panel 03/28/24 N89.8 - Other specified noninflammatory disorders of vagina RT home sleep study 03/28/24 G47.10 - Hypersomnia, unspecified, R06.83 - Snoring Medications: New phenylephrine HCl 10 mg (2 x 5 mg) PO Q4-6H PRN 10 tabs 0RF nasal congestion
== END 2024-03-28 16:40 | disposition home or self-care (01) ==
LOC: HO.HMCH 15:54
PROVIDERS: PCP Internal Medicine
DX: Z00.00 Encounter for general adult medical examination without abnormal findings (principal); G47.10 Hypersomnia, unspecified; N89.8 Other specified noninflammatory disorders of vagina; M12.812 Other specific arthropathies, not elsewhere classified, left shoulder; F41.1 Generalized anxiety disorder; E78.00 Pure hypercholesterolemia, unspecified

== ENCOUNTER 2024-03-28 15:53 | Outpatient (REF) | payer OTHER, SELFPAY ==
[2024-03-29 13:29] LABS: Bacterial Vaginosis PCR NEGATIVE (Negative); Candida Group PCR NOT DETECTED (Not Detect); Candida glab krusei PCR NOT DETECTED (Not Detect); Trichomonas vaginalis PCR NOT DETECTED (Not Detect)
== END 2024-03-28 15:54 | disposition home or self-care (01) ==
LOC: HO.LAB 15:53
PROVIDERS: PCP Internal Medicine
DX: Z00.01 Encounter for general adult medical examination with abnormal findings (principal); G47.10 Hypersomnia, unspecified; N89.8 Other specified noninflammatory disorders of vagina; M12.812 Other specific arthropathies, not elsewhere classified, left shoulder; F41.1 Generalized anxiety disorder; E78.00 Pure hypercholesterolemia, unspecified
CPT/HCPCS: 0352U; 96127; 99212; 99396

== ENCOUNTER 2024-04-08 08:11 | Outpatient (REF) | payer OTHER, SELFPAY ==
[2024-04-08 09:29] LABS: MANUAL DIFF FLAG NO
[2024-04-08 10:55] LABS: Basophils Percent Auto 0.4 % (0-2); Eosinophils Absolute Auto 0.1 X10*3/uL (0.0-0.4); Hematocrit 39.8 % (37.0-47.0); Hemoglobin 14.8 g/dl (12.0-16.0); Imm Gran Abs Auto 0.04 X10*3/uL (0.00-0.03); Imm Gran Pct Auto 0.6 % (0.0-0.4); Lymphocytes Absolute Auto 1.8 X10*3/uL (1.2-4.9); Lymphocytes Percent Auto 26.5 % (20-40); Mean Corpuscular HGB Conc 37.2 g/dl (31.0-35.0); Mean Corpuscular Hemoglobin 33.3 pg (27.0-33.0); Mean Corpuscular Volume 89.4 fL (80.0-98.0); Mean Platelet Volume 11.9 fL (9.4-12.3); Monocytes Absolute Auto 0.5 X10*3/uL (0.1-1.2); Neutrophils Absolute Auto 4.3 x10*3/uL (2.0-8.3); Neutrophils Percent Auto 64.5 % (45-73); Platelet Count 353 X10*3/uL (160-400); Red Blood Count 4.45 X10*6/uL (4.20-5.50); Red Cell Distribution Width 14.4 % (11.0-16.0); White Blood Count 6.7 X10*3/uL (4.8-10.8)
[2024-04-08 10:57] LABS: Appearance Urine Clear; Color Urine Yellow; Glucose Urine UA Negative (Negative); Leukocyte Esterase Urine Trace (Negative); Nitrite Urine Negative (Negative); PH 5.5 (5.0-9.0); Specific Gravity - Urine <= 1.005 (1.005-1.025); UMIC TRIGGER UACC YES; Urine Blood Negative (Negative); Urine Ketones Negative (Negative); Urine Protein Negative (Neg-Trace)
[2024-04-08 11:00] LABS: Bacteria Urine None Seen (None Seen); Hyaline Casts Urine 0-2 /LPF (0-2); RBC Urine 0-2 /HPF (0-2); Squamous Epithelial Cell Urine 0-2 /HPF (0-2); WBC Urine 0-5 /HPF (0-5)
[2024-04-08 11:14] LABS: Alanine Aminotransferase 9 U/L (0-31); Alkaline Phosphatase 54 U/L (39-117); Anion Gap 12 (12-20); Aspartate Amino Transferase 26 U/L (5-31); Bilirubin Total 1.3 mg/dL (0.0-1.0); Blood Urea Nitrogen 8 mg/dL (9-16); C Reactive Protein 0.28 mg/dL (< or = 0.50); Calcium 9.3 mg/dL (8.4-10.2); Carbon Dioxide 23 mmol/L (22-29); Chloride 109 mmol/L (96-108); Cholesterol 195 mg/dL (<200); Estimated Glomerular Filt Rate > 60; Glucose Random 87 mg/dL (60-115); HDL Cholesterol 74 mg/dL (>40); LDL Cholesterol Calculated 108 mg/dL (<100); Potassium 4.1 mmol/L (3.3-5.1); Sodium 140 mmol/L (135-145); Total Protein 7.2 g/dL (6.5-8.0); Triglycerides 68 mg/dL (<150)
[2024-04-08 11:34] LABS: TSH reflex Free T4 1.61 uIU/mL (0.32-4.0)
[2024-04-08 11:40] LABS: Erythrocyte Sedimentation Rate 5 MM/HR (0-20)
[2024-04-08 11:45] LABS: Folate 11.5 ng/mL (> or = 4.0); Vitamin B12 370 pg/mL (200-900)
[2024-04-13 18:29] LABS: Vitamin D 25-OH, D2 <4 ng/mL; Vitamin D 25-OH, D3 30 ng/mL; Vitamin D 25-OH, Total 30 ng/mL (30-100)
== END 2024-04-08 08:12 | disposition home or self-care (01) ==
LOC: HO.LAB 08:11
PROVIDERS: PCP Internal Medicine
DX: Z00.00 Encounter for general adult medical examination without abnormal findings (principal); M54.89 Other dorsalgia; K21.9 Gastro-esophageal reflux disease without esophagitis
CPT/HCPCS: 36415; 80053; 80061; 81001; 82306; 82607; 82746; 84439; 84443; 85025; 85652; 86140

== ENCOUNTER → 2024-05-18 13:04 | Outpatient (REF) | payer OTHER, SELFPAY | LOC: HO.SL 13:04 | PROVIDERS: PCP Internal Medicine | DX: G47.10 Hypersomnia, unspecified (principal); R06.83 Snoring | CPT/HCPCS: 95806 ==

== ENCOUNTER → 2024-05-20 14:03 | Outpatient (BNV) | payer OTHER, SELFPAY | PROVIDERS: PCP Internal Medicine; Visit Provider Internal Medicine | DX: G47.33 Obstructive sleep apnea (adult) (pediatric) (principal) | CPT/HCPCS: 95806 ==

== ENCOUNTER → 2024-06-23 09:55 | Outpatient (BNVA) | payer OTHER, SELFPAY | PROVIDERS: PCP Internal Medicine | DX: Z23 Encounter for immunization (principal); R06.02 Shortness of breath; G47.10 Hypersomnia, unspecified; R42 Dizziness and giddiness; S16.1XXA Strain of muscle, fascia and tendon at neck level, initial encounter | CPT/HCPCS: 90471; 90656; 99212 ==

== ENCOUNTER → 2024-07-20 10:28 | Outpatient (REF) | payer OTHER, SELFPAY ==
--- NOTE | 2024-07-20 10:30 | CA_ITS ---
Acquisition Time: 2024-07-20 11:00:10 Total Exercise Time: 00:09:52 Test Indications: SOB Medications: NONE Protocol: ANA Max HR: 151 BPM 86% of Pred: 175 BPM Max BP: 128/74 mmHG Max Work Load: 11.5 METS Exercise Stress Test with exercise 9 mins 52 secs of Ana Protocol, achieving 85% MPHR, with reports of SOB, no chest pain, without any arrythmias, with normotensive response to exercise. Without EKG changes meeting criteria for ischemia. In recovery, breathing retruned to baseline. Test reviewed with Dr. Pink. Referred By: Jen Gamino Electronically Signed By: Kingston Gan
== END ==
LOC: HO.CARD 10:28
PROVIDERS: PCP Internal Medicine
DX: R06.02 Shortness of breath (principal)
CPT/HCPCS: 93017

== ENCOUNTER → 2024-07-20 10:30 | Outpatient (BNV) | payer OTHER, SELFPAY | PROVIDERS: PCP Internal Medicine | DX: R06.02 Shortness of breath (principal) | CPT/HCPCS: 93016; 93018 ==

== ENCOUNTER 2024-11-15 10:33 | Outpatient (AMB) | payer OTHER, SELFPAY ==
--- NOTE | 2024-11-15 10:34 | MHC.OFFVIS ---
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 Doing well with legal process specialist concerns: increased discharge, menses q 24-28 days. Has Paragard IUD. Currently is sexually active, w/. STI screening offered; she accepts. Other concerns today-sore throat, swollen glands, fatigue, muscle aches. She tries to eat healthy and stays active with exercise. Denies family history of breast, ovarian or colon cancer. Last pap smears: , negative. History of COLE 1. Mammogram: 2023, plans to rebook her appt. [facility] Medical History Fibroid Hx of abnormal cervical Pap smear Hypercholesterolemia GERD (gastroesophageal reflux disease) Angioedema Gestational diabetes Vitamin D deficiency Surgical History Hx of LASIK No pertinent past surgical history Family History Father CVD (cerebrovascular disease) Mother No problems noted. Sister Nasopharyngeal cancer Social History Housing: House Alcohol intake: current Patient Tobacco Use Status: Never used Tobacco e-Cigarette/Vaping Use: Never Used Second Hand Smoke Exposure: No service: No Current occupational status: unemployed Cognitive needs: No Hearing needs: No Vision needs: No Female Reproductive History Menstrual Duration of menses: 3-5 days Date of last menstrual period: 11/07/24 control method: copper IUCD ([email or web address]) Total pregnancies: 3 Full term: 2 Number of Living Children: 2 Date of last pap smear: 09/10/22 (neg pap and hpv) History of abnormal pap smear: Yes (06/19 lgsil 09/17 colpo cole 1) Date of Mammogram: 10/11/23 (Birad 1) Review of Systems Const All systems reviewed & are unremarkable except as noted in HPI and below Reports as per HPI Eyes Reports no additional complaints ENT Reports no additional complaints Card Reports no additional complaints Resp Reports no additional complaints GI Reports as per HPI and Reports no additional complaints Reports as per HPI Musc Reports no additional complaints Skin/Breast Reports as per HPI Neuro Reports no additional complaints Psych Reports no additional complaints Endo Reports no additional complaints Patrick/Lymph Reports no additional complaints Aller/Immun Reports no additional complaints Physical Exam Vital Signs: Last Vital Signs BP 100/60 11/15/24 10:44 BMI result Body Mass Index 21.8 Const General: cooperative, healthy appearing, no acute distress, well developed and alert Orientation/consciousness: patient oriented x3 HEENT Head: Yes normal to inspection Eyes General: appearance normal, both eyes and all related structures Neck Neck: Yes normal visual inspection Thyroid: Thyroid normal Chest Chest palpation & inspection: normal inspection of the chest and other (no puckering, dimpling, peau de orange, retraction, discharge, masses) Breast/axilla inspection: normal inspection of the breasts Breast/axilla palpation: normal palpation of the breasts Resp Effort & Inspection: normal respiratory effort GI Inspection: Yes normal to inspection Palpation (GI): Soft to palpation Rectal Exam - Female: deferred General: Yes bladder normal to palpation External Female Exam: normal external appearance and normal appearance of the urethra Speculum Exam - Vagina: normal appearance of the vagina, normal palpation and normal vaginal discharge Speculum Exam - Cervix: normal appearance of the cervix, normal palpation and Other cervical findings present (IUD strings at the os) Bimanual exam- vagina & uterus: normal bimanual exam, normal palpation, uterine size normal, bladder normal to palpation, normal palpation and non-tender Bimanual Exam- Adnexa, other: no masses Skin General skin exam: no rashes or lesions noted Rashes: no rashes Neuro General: patient oriented x3 Cognition (Neuro): normal cognition Extrem General: Yes normal to inspection Psych Attitude: cooperative Thought process: Normal thought process present Assessment & Plan Assessment & Plan (1) Encounter for annual routine gynecological examination: Code(s): Z01.419 - Encounter for gynecological examination (general) (routine) without abnormal findings Category: Medical Plan: Discussed: Current recommendations for pap smears per ASCCP guidelines. Breast awareness and periodic breast exams. Mammogram yearly. Monitor menstrual cycles, report any unscheduled bleeding, bleeding episodes <24 days apart or heavy/prolonged menstrual bleeding. Call the office for a follow up for any concerns. Advised to speak to her primary care tomorrow at her appointment regarding her other non legal process specialist concerns. Maintain a healthy lifestyle including a well balanced diet and routine exercise. Patient verbalizes understanding and agrees to the plan of care. She was given opportunity to ask questions and all questions were answered to the best of my ability. RTO in one year for annual legal process specialist examination. This note is constructed using voice recognition software. While every effort has been made to ensure accuracy, process validation engineer errors may have been included. (2) Vaginal discharge: Code(s): N89.8 - Other specified noninflammatory disorders of vagina Category: Medical Plan BV and GC and chlamydia panel obtained await results for final plan of care. Orders: Orders Bacterial Vaginosis Panel Today N89.8 - Other specified noninflammatory disorders of vagina CT NG by PCR Today N89.8 - Other specified noninflammatory disorders of vagina Coding Level of Care Code Est Pt Prev Care 40-64y(17414) Diagnoses Encounter for annual routine gynecological examination Z01.419 Vaginal discharge N89.8
[2024-11-15 10:44] VITALS: BP 100/60; BMI 21.8
--- OUTSIDE RECORDS SUMMARY | 2024-11-15 12:01 | XMS_ITS | Encounter Summary ---
Author Organization [employer] Address [address] [place] [address] Care Team Providers Care Yard Demurrage Clerk Name Role Phone Unavailable Primary Care Provider Unavailabl e Encounter Details Date Type Department Care Team (Latest Contact Info) Description 10/07/2020 Abstract [facility] CONVERSIONS Dental, Provider, DDS Social History Tobacco Use Types Packs/Day Years Used Date Smoking Tobacco: Never Assessed Comments Unknown Sex and Gender Information Value Date Recorded Sex Assigned at Female 03/30/2022 10:38 AM EDT Legal Sex Female 10:38 AM EDT Gender Identity Female 03/30/2022 10:38 AM EDT Sexual Orientation Don't know 03/30/2022 10 :38 AM EDT documented as of this encounter Plan of Treatment Not on file documented as of this encounter Visit Diagnoses Not on filedocumented in this encounter
== END 2024-11-15 12:04 | disposition home or self-care (01) ==
LOC: HO.HWS 10:33
PROVIDERS: PCP Internal Medicine; Visit Provider Advanced Practice Midwife
DX: Z01.419 Encounter for gynecological examination (general) (routine) without abnormal findings (principal); N89.8 Other specified noninflammatory disorders of vagina
CPT/HCPCS: 99396; 99459

== ENCOUNTER 2024-11-15 11:10 | Outpatient (REF) | payer OTHER, SELFPAY | END 2024-11-15 11:11 | disposition home or self-care (01) | LOC: HO.LNP 11:10 | PROVIDERS: Visit Provider Advanced Practice Midwife | DX: Z13.89 Encounter for screening for other disorder (principal) ==

== ENCOUNTER 2024-11-15 11:10 | Outpatient (REF) | payer OTHER, SELFPAY ==
[2024-11-15 13:21] LABS: Bacterial Vaginosis PCR NEGATIVE (Negative); Candida Group PCR NOT DETECTED (Not Detect); Candida glab krusei PCR NOT DETECTED (Not Detect); Trichomonas vaginalis PCR NOT DETECTED (Not Detect)
[2024-11-15 13:53] LABS: CT PCR NOT DETECTED (Not Detect.); NG PCR NOT DETECTED (Not Detect.)
== END 2024-11-15 11:11 | disposition home or self-care (01) ==
LOC: HO.LAB 11:10
PROVIDERS: Visit Provider Advanced Practice Midwife
DX: Z01.419 Encounter for gynecological examination (general) (routine) without abnormal findings (principal); N89.8 Other specified noninflammatory disorders of vagina
CPT/HCPCS: 81515; 87491; 87591; 99396

== ENCOUNTER 2024-11-16 13:33 | Outpatient (AMB) | payer OTHER, SELFPAY ==
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
[2024-11-16 13:43] VITALS: BP 98/62; PULSE 76; O2SAT 98; BMI 22.1
--- OUTSIDE RECORDS SUMMARY | 2024-11-16 14:44 | XMS_ITS | Encounter Summary ---
Author Organization [employer] Address [address] [facility] [address] [place] [address] Care Team Providers Care Retail Loss Prevention Specialist Name Role Phone Unavailable Primary Care Provider Unavailabl e Encounter Details Date Type Department Care Team (Latest Contact Info) Description 10/07/2020 Abstract [facility] CONVERSIONS Dental, Provider, DDS Social History Tobacco [...]
== END 2024-11-16 14:17 | disposition home or self-care (01) ==
LOC: HO.HMCH 13:33
PROVIDERS: PCP Internal Medicine; Visit Provider Internal Medicine
DX: M79.672 Pain in left foot (principal); M21.611 Bunion of right foot; M12.812 Other specific arthropathies, not elsewhere classified, left shoulder

== ENCOUNTER → 2024-11-16 13:33 | Outpatient (BNVA) | payer OTHER, SELFPAY | PROVIDERS: PCP Internal Medicine; Visit Provider Internal Medicine | DX: M79.672 Pain in left foot (principal); M21.611 Bunion of right foot; M12.812 Other specific arthropathies, not elsewhere classified, left shoulder; K21.9 Gastro-esophageal reflux disease without esophagitis; E78.00 Pure hypercholesterolemia, unspecified; F41.1 Generalized anxiety disorder; S16.1XXA Strain of muscle, fascia and tendon at neck level, initial encounter; X58.XXXA Exposure to other specified factors, initial encounter; Y93.9 Activity, unspecified; Y92.9 Unspecified place or not applicable; Y99.9 Unspecified external cause status | CPT/HCPCS: 99212 ==

== ENCOUNTER 2024-11-24 13:16 | Outpatient (REF) | payer OTHER, SELFPAY ==
--- NOTE | ~2024-11-24 | XR_ITS ---
CLINICAL HISTORY: M79.672 - Pain in left foot Left foot three views Comparison: None provided Findings: No acute fracture or dislocation identified. No acute focal bony abnormality. No radiopaque foreign body noted. Impression: No acute bony abnormality This document has been electronically signed by: Nico Maynard MD on 11/25/2024 20:50:24
--- OUTSIDE RECORDS SUMMARY | 2024-11-24 13:46 | XMS_ITS | Encounter Summary ---
Author Organization [employer] Address [address] [facility] [address] [place] [address] Care Team Providers Care Student Life Vice President Name Role Phone Unavailable Primary Care Provider Unavailabl e Encounter Details Date Type Department Care Team (Latest Contact Info) Description 10/07/2020 Abstract [facility] CONVERSIONS Dental, Provider, DDS Social History [...]
== END 2024-11-24 13:17 | disposition home or self-care (01) ==
LOC: HO.LAB 13:16
PROVIDERS: PCP Internal Medicine; Visit Provider Internal Medicine
DX: M79.672 Pain in left foot (principal)
CPT/HCPCS: 73620

== ENCOUNTER → 2024-11-24 13:22 | Outpatient (BNV) | payer OTHER, SELFPAY | PROVIDERS: PCP Internal Medicine; Visit Provider Radiology Diagnostic Radiology | DX: M79.672 Pain in left foot (principal) | CPT/HCPCS: 73620 ==

== ENCOUNTER → 2025-01-31 12:30 | Outpatient (BNV) | payer OTHER, SELFPAY | PROVIDERS: PCP Internal Medicine; Visit Provider Internal Medicine | DX: Z12.31 Encounter for screening mammogram for malignant neoplasm of breast (principal) | CPT/HCPCS: 77063; 77067 ==

== ENCOUNTER 2025-01-31 12:33 | Outpatient (REF) | payer OTHER, SELFPAY ==
--- NOTE | ~2025-01-31 | MM_ITS ---
EXAMINATION: MM SCREENING DIGITAL BREAST TOMOSYNTHESIS, BILATERAL CLINICAL INFORMATION: Screening. Asymptomatic. COMPARISON: Mammography: Comparison is made with available priors TECHNIQUE: Digital breast mammography with tomosynthesis is performed in both the craniocaudal and mediolateral oblique views along with computer-aided detection (CAD). FINDINGS: The breasts are heterogeneously dense, which may obscure small masses (ACR BI-RADS breast composition Category c). There are no significant masses, abnormal calcifications, or other abnormalities. MM/MM tomosynthesis screening BI IMPRESSION: No mammographic evidence of malignancy. ASSESSMENT: BI-RADS BI-RADS 1 - Negative RECOMMENDATION: Routine annual mammography screening. 1 year F/U This examination should not preclude the clinical evaluation of a suspicious palpable abnormality. This patient's information was entered into a reminder system with a target due date for their next mammogram. Electronically signed by: Amara Cornejo DO 02/02/2025 05:58 PM EDT
--- OUTSIDE RECORDS SUMMARY | 2025-01-31 15:00 | XMS_ITS | Encounter Summary ---
Author Organization [facility] Address [address] [place] [address] Phone Care Team Providers Care Box Blank Machine Operator Name Role Phone Trell Day MD Primary Care Provider [phone] Encounter Details Date Type Department Care Team (Late st Contact Info) Description 05/21/2021 Transcribe Orders Virtual Department [address] [place] [address] Trell Day MD [address] [place] [phone] Social History Tobacco Use Types Packs/Day Years Used Date Smoking Tobacco: Never Assessed Comments Unknown Sex and Gender Information Value Date Recorded Sex Assigned at Not on file Legal Sex Female 9:24 PM EDT Gender Identity Not on file Sexual Orientation Not on file documented as of this encounter Plan of Treatment Not on file documented as of this encounter Visit Diagnoses Not on filedocumented in this encounter Care Teams Box Blank Machine Operator Relationship Specialty Start Date End Date Trell Day MD [address] [place] [phone] PCP - General Internal Medicine 08/29/17 documented as of this encounter Additional Source Comments The information contained in this document represents components of the legal health record. It is not the complete legal health record.[facility]
--- OUTSIDE RECORDS SUMMARY | 2025-01-31 15:00 | XMS_ITS | Encounter Summary ---
Author Organization [employer] Address [address] [facility] [address] [place] [address] Care Team Providers Care Rig Builder Helper Name Role Phone Unavailable Primary Care Provider Unavailabl e Encounter Details Date Type Department Care Team (Latest Contact Info) Description 10/20/2021 Abstract [facility] CONVERSIONS Dental, Provider, DDS Social History Tobacco [...]
--- OUTSIDE RECORDS SUMMARY | 2025-01-31 15:00 | XMS_ITS | Encounter Summary ---
Author Organization [facility] Address [address] [place] [address] Phone Care Team Providers Care Balance Clerk Name Role Phone Trell Day MD Primary Care Provider [phone] Reason for Referral * Physical Therapy (Routine) - Closed Specialty Diagnoses / Procedures Referred By Contac t Referred To Contact Physical Therapy Diagnoses Encounter for rehabilitation Johana Marr MD Phone: tel: fax: [facility] [address] [place] [address] Phone: tel: Referral ID Status Reason Start Date Expiration Date Visits Re quested Visits Authorized [id number] Closed 06/27/2020 05/30/2021 13 13 Encounter Details Date Type Department Care Team (Latest Contact Info) Description 06/27/2020 Transcribe Orders [facility] [address] [place] [address] Johana Marr MD [address] [place] [address] Encounter for rehabilitation (Primary Dx) Social History Tobacco Use Types Packs/Day Years Used Date Smoking Tobacco: Never Assessed Comments Unknown Sex and Gender Information Value Date Recorded Sex Assigned at Not on file Legal Sex Female 9:24 PM EDT Gender Identity Not on file Sexual Orientation Not on file documented as of this encounter Plan of Treatment Scheduled Referrals Name Type Priority Associated Diagnoses Orde r Schedule Ambulatory referral to [facility] Physical Therapy Outpatient Referral Routine Encounter for rehabilitation Ordered: 06/27/2020 documented as of this encounter Visit Diagnoses Diagnosis Encounter for rehabilitation- Primary documented in this encounter Care Teams Balance Clerk Relationship Specialty Start Date End Date Trell Day MD [address] [place] [address] [address] [place] [phone] PCP - General Internal Medicine 08/29/17 documented as of this encounter Additional Source Comments The information contained in this document represents components of the legal health record. It is not the complete legal health record.[facility]
--- OUTSIDE RECORDS SUMMARY | 2025-01-31 15:00 | XMS_ITS | Encounter Summary ---
Author Organization [employer] Address [address] [facility] [address] [place] [address] Care Team Providers Care Ticketing Clerk Name Role Phone Unavailable Primary Care Provider Unavailabl e Encounter Details Date Type Department Care Team (Latest Contact Info) Description 10/07/2020 Abstract [facility] CONVERSIONS Dental, Provider, DDS Social History Tobacco [...]
--- OUTSIDE RECORDS SUMMARY | 2025-01-31 15:00 | XMS_ITS | Clinical Summary ---
Author Organization [employer] Address [address] [facility] 7[address] [place] [address] Care Team Providers Care Addiction Psychiatrist Name Role Phone Unavailable Primary Care Provider Unavailabl e Allergies Active Allergy Reactions Criticality Noted Date Comments Octacosanol 08/24/2023 Medications cyclobenzaprine (Flexeril) 5 MG tablet Take 5 mg by mouth. Active Sod Fluoride-Potassi um Nitrate 1.1-5 % paste Please use pea size to brush teeth. Spit after brushing. Do not rinse. 112 g 1 09/21/2023 Active loratadine (Claritin) 10 MG tablet Take 10 mg by mouth Once per day. 10/01/2023 Active fluconazole (Diflucan) 150 MG tablet TAKE 1 TABLET BY MOUTH A ONE TIME DOSE FOR 1 DAY 10/01/2023 Active Active Problems No known active problems Social History Tobacco Use Types Packs/Day Years Used Date Smoking Tobacco: Never Passive Smoke Exposure: Never Smokeless Tobacco: Never Tobacco Cessation:Counseling Given: Not Answered Alcohol Use Standard Drinks/Week Comments Never 0 (1 standard drink = 0.6 oz pur e alcohol) Comments Unknown Sex and Gender Information Value Date Recorded Sex Assigned at Female 03/30/2022 10:38 AM EDT Legal Sex Female 10:38 AM EDT Gender Identity Female 03/30/2022 10:38 AM EDT Sexual Orientation Don't know 03/30/2022 10 :38 AM EDT Last Filed Vital Signs Vital Sign Reading Time Taken Comments Blood Pressure 98/64 03/09/2024 2:59 PM EDT Pulse 65 03/09/2024 2:59 PM EDT Temperature - - Respiratory Rate - - Oxygen Saturation - - Inhaled Oxygen Concentration - - Weight - - Height - - Body Mass Index - - Plan of Treatment Health Maintenance Due Date Last Done Comments CT Colonography 1978 Colonoscopy 1978 Colorectal Cancer Screening 1978 Depression Screening 1978 FIT DNA/Cologuard 1978 FIT 1978 FOBT 1978 HIV Screening 1978 SDOH Screening 1978 Sigmoidoscopy 1978 Disability Screening 1978 Alcohol/Substance Use Screening 1990 Family Planning (PISQ) 1993 Hepatitis C Screening 1996 DTaP/Tdap/Td Vaccines (1 - Tdap) 1997 Hepatitis B Vaccines (1 of 3 - 19+ 3-dose series) 1997 Pap Smear 09/28/1999 Cervical Cancer Screening 2008 HPV/Cotest 2008 Mammogram 2018 COVID-19 Vaccine ( - 2023- season) 2024 Dental Oral Exam 03/23/2024 09/21/2023, , 09/12/2020 Dental X-Ray: Bitewings 08/24/2024 08/24/19, 10/20/2021, 09/12/2020 Dental Prophylaxis 09/08/2024 03/09/2024, 0 08/24/2023, 10/20/2021, Additional history exists Influenza Vaccine (#1) 2025 Tobacco Screening 03/09/2025 03/09/2024 Dental X-Ray: Full Mouth 09/21/2026 09/21/2023, 08/29 Zoster Vaccines (1 of 2) 2028 RSV Patients and Patients Aged 60 years or older (1 - 1-dose 75+ series) 2053 HIB Vaccines Aged Out No longer eligi ble based on patient's age to complete this topic HPV Vaccines Aged Out No longer eligi ble based on patient's age to complete this topic Hepatitis A Vaccines Aged Out No long er eligible based on patient's age to complete this topic IPV Vaccines Aged Out No longer eligi ble based on patient's age to complete this topic Meningococcal B Vaccine Aged Out No l onger eligible based on patient's age to complete this topic Meningococcal Vaccine Aged Out No danni kimberly eligible based on patient's age to complete this topic Pneumococcal Vaccine: Pediatrics (0 to 5 Years) and At-Risk Patients (6 to 49) Years Aged Out No longer eligible based on patient's age to complete this topic RSV under 20 months Aged Out No longe r eligible based on patient's age to complete this topic Rotavirus Vaccines Aged Out No longer eligible based on patient's age to complete this topic Procedures Procedure Name Priority Date/Time Associated Diagnosis Comments PROPHYLAXIS - ADULT Routine 03/09/2024 3 :00 PM EDT PANORAMIC RADIOGRAPHIC IMAGE Routine 09/21/2023 2:00 PM EDT PERIODIC ORAL EVALUATION - ESTABLISHED PATIENT Routine 09/21/2023 2:00 PM EDT BITEWINGS - 4 RADIOGRAPHIC IMAGES Routine 08/24/2023 3:00 PM EDT from Last 3 Months or Most Recently Relevant to Health Maintenance Insurance DENTAL - [employer] PARTIAL (MEDICAID)
--- OUTSIDE RECORDS SUMMARY | 2025-01-31 15:00 | XMS_ITS | Encounter Summary ---
Author Organization [facility] Address [address] [facility] [address] [place] [address] Phone Care Team Providers Care Waiter/Waitress Third Class Name Role Phone Unknown, Unknown Primary Care Provider Trell Ariza MD Primary Care Provider Reason for Referral * Physical Therapy - Closed Specialty Diagnoses / Procedures Referred By Yandel davis Referred To Contact Physical Therapy Diagnoses Encounter for rehabilitation System, Provider Not In, PhD [id number] [place] [address] [address] [place] [address] Phone: tel: Referral ID Status Reason Start Date Expiration Date Visits Re quested Visits Authorized [id number] Closed 08/31/2017 11/26/2017 17 17 Encounter Details Date Type Department Care Team (Latest Contact Info) Description 08/05/2017 Transcribe Orders [facility] [address] [place] [address] Davy Poole MD [address] [place] [address] [place] [address] Encounter for rehabilitation (Primary Dx) Social History [...] on file documented as of this encounter Procedures Procedure Name Priority Date/Time Associated Diagnosis Comments AMB REFERRAL TO [facility] PHYSICAL THERAPY Routine 08/31/2017 11:03 AM EDT Encounter for rehabilitation documented in this encounter Results * Ambulatory referral to [facility] Physical Therapy (08/31/2017 11:03 AM EDT) us Provider Not In System PhD AMB [facility] REFERRALS Fin al Result documented in this encounter Visit Diagnoses Diagnosis Encounter for rehabilitation- Primary documented in this encounter Care Teams Waiter/Waitress Third Class Relationship Specialty Start Date End Date Unknown, Unknown, MD PCP - General 08/05/17 08/28/17 Trell Day MD [address] [place] [address] PCP - General Internal Medicine 08/29/17 documented as of this encounter Additional Source Comments The information contained in this document represents components of the legal health record. It is not the complete legal health record.[facility]
--- OUTSIDE RECORDS SUMMARY | 2025-01-31 15:00 | XMS_ITS | Clinical Summary ---
Author Organization [address] [place] [address] Address [address] [place] [address] Phone Care Team Providers Care Health Care Legal Assistant Name Role Phone Trell Day MD Primary Care Provider [phone] Surgical History Surgery Date Site/Laterality Comments OTHER SURGICAL HISTORY 1996 Bilateral PROCEDURE: DE UNLISTED PROCEDURE EXTRAOCULAR MUSCLE; COMMENT: laser surgery Medical History Medical History Date Comments Anemia DX:Anemia Bacterial vaginosis 04/02/2016 DX:Bacterial vaginosis Vitamin D insufficiency 08/24/2013 DX:Vitam in D insufficiency; COMMENT: Vitamin D = 21 History of vitamin D deficiency 01/15/2016 DX:History of vitamin D deficiency; COMMENT: Vitamin D = 17 Yeast infection 06/17/2011 DX:Yeast infecti on; COMMENT: 01/16/11, 05/17/08 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 Vertigo 2013 DX:Vertigo Hemorrhoids 01/15/2016 DX:Hemorrhoids Vaginal dryness 01/15/2016 DX:Vaginal dryne ss Dyspareunia, female 01/15/2016 DX:Dyspareun ia, female Constipation 05/17/2008 DX:Constipation Sciatica 04/02/2016 DX:Sciatica History of depression 2004 DX:History of depression LGSIL on Pap smear of cervix 09/05/2019 DX: LGSIL on Pap smear of cervix Family History Medical History Relation Name Comments Brain Aneurysm Father Hypertension Father Arthritis Mother Diabetes Mother Hypertension Mother Breast cancer Neg Hx Colon cancer Neg Hx Ovarian cancer Neg Hx Prostate cancer Neg Hx Relation Name Status Comments Father Mother Social History Tobacco Use Types Packs/Day Years Used Date Smoking Tobacco: Never Smokeless Tobacco: Never Alcohol Use Standard Drinks/Week Comments Yes 0 (1 standard drink = 0.6 oz pur e alcohol) Comments Unknown Sex and Gender Information Value Date Recorded Sex Assigned at Not on file Legal Sex Female 2:44 AM EST Gender Identity Not on file Sexual Orientation Not on file Obstetrics History Plan of Treatment Upcoming Encounters Date Type Department Care Team ([facility] Contact Info) Description 02/13/2025 2:00 PM EDT Consult Orthopedic Surgery - [place] [address] [address] Nehemiah Martinez, DPM [address] [address] Health Maintenance Due Date Last Done Comments Breast Cancer Screening 1978 DTaP,Tdap,and Td Vaccines (1 - Tdap) 1997 Cervical Cancer Screening: P ap Smear 06/27/2022 06/27/2019 Depression Screening 05/31/2024 Colorectal Cancer Screening: Colonoscopy 12/07/2024 HIV Screening 12/07/2024 Hepatitis C Screening 12/07/2024 Social Influencers of Health Screening 12/07/2024 COVID-19 Vaccine (2023-2 5 season) 2025 Influenza Vaccine (#1) 2025 Hepatitis B Vaccines Completed 09/30/2011, 06/17/2011, 01/16/2011 HIB Vaccines Aged Out No longer eligi [...] on patient's age to complete this topic MMR Vaccines Aged Out No longer eligi ble based on patient's age to complete this topic Meningococcal ACWY Vaccine Aged Out N o longer eligible based on patient's age to complete this topic Meningococcal B Vaccine Aged Out No l onger eligible based on patient's age to complete this topic Pneumococcal Vaccine: Pediatrics (0 to 5 Years) and At-Risk Patients (6 to 49 Years) Aged Out No longer eligible b ased on patient's age to complete this topic RSV Immunization Patients Under 20 months Aged Out No longer eligible b ased on patient's age to complete this topic Varicella Vaccines Aged Out No longer eligible based on patient's age to complete this topic Procedures Procedure Name Priority Date/Time Associated Diagnosis Comments PAP SMEAR Routine 06/27/2019 from Last 3 Months or Most Recently Relevant to Health Maintenance Results * Pap smear (06/27/2019) 06/27/2019 Narrative HISTORICAL TESTING LAB RESULTING AGENCY - 07/05/2019 1:41 PM EST [id number] THINPREP PAP, IMAGED: LOW-GRADE SQUAMOUS INTRAEPITHELIAL LESION (LSIL) . ABUNDANT PARTIALLY OBSCURING ACUTE INFLAMMATORY CELLS ARE PRESENT. KERVIN FIGUEROA , JESUSITA(ASCP) (CASE SCREENED 06 30 2019) ADINA HANKINS M.D. , PATHOLOGIST (CASE ELECTRONICALLY SIGNED 07 04 2019) RESULT OF APTIMA HIGH RISK HPV ASSAY: HIGH RISK HPV: POSITIVE (SEROTYPES 16,18,31,33,35,39,45,51,52,56,58,59,66,68) COMPLETED ON 2019-06-30 ADEQUACY: SATISFACTORY ENDOCERVICAL/TRANSFORMATION ZONE COMPONENT PRESENT. SOURCE: THINPREP PAP HPV ANY DX: REFLEX 16 AND 18, CERVICAL, IMAGED CLINICAL INFORMATION: HPV ANY DIAGNOSIS. Z12.4, Z01.419, PAP HX NEGATIVE Annamaria YI LAB CYTOLOGY ORDERABLES Final R esult HISTORICAL TESTING LAB RESULTING AGENCY from Last 3 Months or Most Recently Relevant to Health Maintenance Insurance [employer] Care Teams Health Care Legal Assistant Relationship Specialty Start Date End Date Trell Day MD [address] [place] [address] [address] [facility] [place] [address] PCP - General Internal Medicine 03/01/17
--- OUTSIDE RECORDS SUMMARY | 2025-01-31 15:00 | XMS_ITS | Clinical Summary ---
Author Organization [facility] Address [address] [facility] [address] [place] [address] Phone Care Team Providers Care Ob Nurse Name Role Phone Trell Day MD Primary Care Provider [phone] Medications No known medications Active Problems No known active problems Social History Tobacco Use Types Packs/Day Years Used Date Smoking Tobacco: Never Assessed Education Answer Date Recorded Are you interested in more education? Not on juan e 09/25/2022 Are you concerned about learning? Not on file 09/25/2022 No 09/25/2022 No 09/25/2022 Digital Access Answer Date Recorded No 10/23/2022 No 10/23/2022 No 10/23/2022 Reliable internet access at home? Not on file 10/23/2022 Device with a working camera? Not on file Comments Unknown Sex and Gender Information Value Date Recorded Sex Assigned at Not on file Legal Sex Female 9:24 PM EDT Gender Identity Not on file Sexual Orientation Not on file Plan of Treatment Health Maintenance Due Date Last Done Comments Adult Td,Tdap Booster 1978 LIPID PANEL 1978 DEPRESSION SCREENING 1990 SMOKING Hx and SMOKELESS TOBACCO SCREENING 09/28/1991 HEPATITIS C SCREENING 1996 HIV ONE-TIME SCREENING (18-65 YEARS) 1996 PAP SMEAR 09/28/1999 MAMMOGRAM 2018 COLOGUARD 09/28/2023 COLONOSCOPY 09/28/2023 COLORECTAL CANCER SCREENING 09/28/2023 FIT TEST 09/28/2023 FOBT 09/28/2023 SIGMOIDOSCOPY 09/28/2023 VIRTUAL COLONOSCOPY 09/28/2023 INFLUENZA VACCINE (#1) 2024 , 04/04/2019, 03/31/2016, Additional history exists COVID-19 VACCINE (2024- season) 2025 07/16/2020, 06/25/2020 HEPATITIS A VACCINES Aged Out No long er eligible based on patient's age to complete this topic HIB VACCINES Aged Out No longer eligi ble based on patient's age to complete this topic MENINGOCOCCAL VACCINES (ACWY) Aged Out No longer eligible based on patient's age to complete this topic MENINGOCOCCAL VACCINES (B) Aged Out N o longer eligible based on patient's age to complete this topic PNEUMOCOCCAL VACCINES (0-49 years) Aged Out No longer eligible based on patient's age to complete this topic Medical Devices Not on file [place] [address] [place] [address] [facility]CP [facility] PART[facility] [employer] NON NSPG PCP [employer] [facility] NET PARTIAL [employer] NON NSPG PCP S[facility] [facility] NET PARTIAL [facility] NON NSPG PCP S[employer] [facility] NET PARTIAL [facility] NON NSPG PCP S[employer] [facility] NET PARTIAL [employer] NON NSPG PCP S[employer] [facility] NET PARTIAL [address] [place], [place] [address]ENSE NON NSPG PCP [employer] [employer] [place] [address] [place] [address] NON NSPG PCP S[employer] [facility] [place] [place] [address] NON NSPG PCP [employer] [employer] NET PARTIAL Care Teams Ob Nurse Relationship Specialty Start Date End Date Trell Day MD [address] [place] [id number] PCP - General Internal Medicine 08/29/17 Additional Source Comments The information contained in this document represents components of the legal health record. It is not the complete legal health record.[facility]
== END 2025-01-31 12:34 | disposition home or self-care (01) ==
LOC: HO.MAMMO 12:33
PROVIDERS: PCP Internal Medicine; Visit Provider Internal Medicine
DX: Z12.31 Encounter for screening mammogram for malignant neoplasm of breast (principal)
CPT/HCPCS: 77063; 77067

== ENCOUNTER 2025-04-02 12:29 | Outpatient (REF) | payer OTHER, SELFPAY ==
--- NOTE | ~2025-04-02 | XR_ITS ---
EXAMINATION: XR CERVICAL SPINE 2-3 VIEWS HISTORY: S16.1XXA - Strain of muscle, fascia and tendon at neck level, initial encounter... COMPARISON: Comparison is made with the prior examination dated 09/11/2020. FINDINGS: AP, lateral, and open-mouth odontoid views of the cervical spine are submitted. Osseous mineralization is normal. Seven cervical vertebral bodies are identified maintaining normal height without evidence of fracture or subluxation. There is straightening of the normal cervical lordosis. Again seen is mild to moderate degenerative disc disease at C5-6 and, to a lesser extent at C3-4.. The neural foramina patent bilaterally. The odontoid and lateral masses of C1 are intact. There is no prevertebral soft tissue swelling. XR/XR cervical spine 3V IMPRESSION: Straightening of the normal cervical lordosis. Degenerative disc disease as described. Electronically signed by: Bayron Gallardo MD 04/02/2025 02:03 PM [facility]
== END 2025-04-02 12:30 | disposition home or self-care (01) ==
LOC: HO.XRAY 12:29
PROVIDERS: PCP Internal Medicine; Visit Provider Internal Medicine
DX: Z00.00 Encounter for general adult medical examination without abnormal findings (principal); K21.9 Gastro-esophageal reflux disease without esophagitis; F41.1 Generalized anxiety disorder; S16.1XXA Strain of muscle, fascia and tendon at neck level, initial encounter; R49.0 Dysphonia; M79.672 Pain in left foot; M79.671 Pain in right foot; E78.00 Pure hypercholesterolemia, unspecified; X50.9XXA Other and unspecified overexertion or strenuous movements or postures, initial encounter; Y93.9 Activity, unspecified; Y92.9 Unspecified place or not applicable; Y99.9 Unspecified external cause status; Z23 Encounter for immunization
CPT/HCPCS: 72040; 90471; 90656; 99396

== ENCOUNTER 2025-04-02 12:29 | Outpatient (AMB) | payer OTHER, SELFPAY ==
--- NOTE | 2025-04-02 12:31 | A.OFFPC_ITS ---
Vital Signs 04/02/25 12:32 Height 4 ft 11 in Weight 109 lb BMI 22.0 BP 90/58 L Blood Pressure Location Lt brachial Position Sitting Pulse 64 Pulse Source Pulse Oximeter Temp Source Temporal Artery Scan Pulse Oximetry (%) 99 Oxygen Delivery Method Room Air Intake Visit Reasons: Annual Exam Allergies No Known Allergies Allergy (Verified 04/02/25 12:35) Medication List - Last Reconciled 04/02/25 by Trell Day MD cholecalciferol (vitamin D3) 10 mcg PO DAILY cyclobenzaprine 5 mg PO BEDTIME PRN fexofenadine ([facility]maira Allergy) 180 mg PO DAILY xynxqpuv-tgl-alkv fum-folic ac 18 mg iron- 400 mcg (One Daily Women's) tabs PO Tobacco use date assessed: 04/02/25 Dental Screening Dental Screen Date: 04/02/25 Did you have a dental visit in the last 12 months?: Yes Did you have a dental problem in the last 6 months where you did not have access to dental care?: No Was dental information given to patient?: Patient has dentist HPI Annual Exam HPI Details seen ENT 10 wason - was advised to get a CT scan for hoarsness. referred to speech therapy [facility] Medical History Fibroid Hx of abnormal cervical Pap smear Hypercholesterolemia GERD (gastroesophageal reflux disease) Angioedema Gestational diabetes Vitamin D deficiency Surgical History Hx of LASIK No pertinent past surgical history Family History Father CVD (cerebrovascular disease) Mother No problems noted. Sister Nasopharyngeal cancer Social History (Updated 04/02/25 @ 12:49 by Trell Day MD) Housing: House Alcohol intake: current Comment: once a month 2 drink Patient Tobacco Use Status: Never used Tobacco e-Cigarette/Vaping Use: Never Used Second Hand Smoke Exposure: No service: No Current occupational status: unemployed Cognitive needs: No Hearing needs: No Vision needs: No Questionnaire PHQ-9 Over the last 2 weeks, how often have you been bothered by any of the following problems? 1. Little interest or pleasure in doing things: several days 2. Feeling down, depressed, or hopeless: several days 3. Trouble falling or staying asleep, or sleeping too much: several days 4. Feeling tired or having little energy: several days 5. Poor appetite or overeating: several days 6. Feeling bad about yourself - or that you are a failure or have let yourself or your family down: not at all 7. Trouble concentrating on things, such as reading the newspaper or watching television: not at all 8. Moving or speaking so slowly that other people could have noticed. Or the opposite - being so fidgety or restless that you have been moving around a lot more than usual: not at all 9. Thoughts that you would be better off or of hurting yourself in some way: not at all Total score: 5 Depression Screening Interpretation: Negative Depression Screening Done: Yes Source: Developed by Drs. Bayron Daugherty, Rosemary Burrows, Elias Villanueva and colleagues, with an educational niecy from [employer]. Thrive Questionnaire Date Thrive assessed: 04/02/25 I am a: Patient What is your living situation today?: I have a steady place to live Within the past 12 months, did the food you bought not last and you didn't have the money to get more?: Often true Within the past 12 months, did you worry whether your food would run out before you got money to buy more?: Never true Do you have trouble paying for medicines?: No Do you have trouble getting transportation to medical appointments?: No Do you have trouble paying your heating and electricity bill?: No Do you have trouble taking care of your child, family member or friend?: No Do you have trouble with day-to-day activities such as bathing, preparing meals, shopping, managing finances, etc.?: I choose not to answer this question Are you currently unemployed and looking for a job?: I choose not to answer this question Are you interested in more education?: I choose not to answer this question Please select the resources that you would like help with: None Currently or been in a relationship where the following occur: I choose not to answer THRIVE Score: 1 AUDIT C Alcohol Use Questionnaire (AUDIT-C) 1. How often do you have a drink containing alcohol?: 2-4 times a month 2. How many drinks containing alcohol do you have on a typical day when you are drinking?: 1 or 2 3. How often do you have six or more drinks on one occasion?: Never Total Score: 2 LAMINE-7 AMB Questionnaire LAMINE-7 Date LAMINE - 7 assessed: 04/02/25 Feeling nervous, anxious, or on edge: 0 = Not at all Not being able to stop or control worryin = Several days Worrying too much about different things: 1 = Several days Trouble relaxin = Several days Being so restless that it is hard to sit still: 1 = Several days Becoming easily annoyed or irritable: 2 = More than half the days Feeling afraid as if something awful might happen: 1 = Several days Total LAMINE-7 score (0-4 normal; 5-9 mild; 10-14 moderate; 15-21 severe): 7 Source: Developed by Drs. Bayron Daugherty, Rosemary Burrows, Elias Villanueva and colleagues, with an educational niecy from [employer]. Review of Systems Const Denies poor appetite and Denies weakness Eyes Denies no additional complaints ENT Reports Normal hearing present, Denies dizziness, Denies nasal congestion, Denies tinnitus and Denies sore throat Card Denies chest pain, Denies syncope, Denies rapid heart rate and Denies dyspnea Resp Denies cough and Denies dyspnea GI Denies change in stool character, Reports constipation, Denies diarrhea, Denies nausea and Denies vomiting Denies urinary frequency, Denies difficulty voiding and Denies dysuria Neuro Reports Normal hearing present, Denies confusion, Denies dizziness, Denies syncope and Denies weakness Psych Denies confusion Physical exam (Primary Care) Vital Signs: Last Vital Signs Pulse 64 04/02/25 12:32 BP 90/58 L 04/02/25 12:32 Pulse Ox 99 04/02/25 12:32 Oxygen Delivery Method Room Air 04/02/25 12:32 BMI result Body Mass Index 22.0 Tobacco/Smoking Status: Tobacco use Status Tobacco use date assessed 04/02/25 04/02/25 12:37 Patient Tobacco Use Status Never used Tobacco 04/02/25 12:49 e-Cigarette/Vaping Use Never Used 04/02/25 12:49 PHQ-9: PHQ-9 Score PHQ-9: Total score 5 04/02/25 13:06 Depression Screening Interpretation: Negative Thrive Assessment: Date of Thrive Assessment Date Thrive assessed 04/02/25 04/02/25 12:37 Currently or been in a relationship where the following occur: I choose not to answer Const General: No confusion Orientation/consciousness: No confusion HENMT Head: Yes normocephalic Ears: external ears normal and TM's normal bilaterally Face and sinus: Yes normal facial exam Mouth: moist mucous membranes Throat: Yes tonsils normal Eyes Conjunctivae: conjunctivae normal Pupils: Equal, round and reactive pupils present and Pupil accommodation reflex normal Direct Ophthalmoscopy: normal light reflex Neck Neck: No lymphadenopathy Thyroid: Thyroid normal Chest Chest palpation & inspection: normal inspection of the chest Resp Effort & Inspection: normal respiratory effort and no audible wheezes Auscultation: clear to auscultation bilaterally, no crackles, no wheezes and lung sounds not diminished Cardio Rate: regular rate Rhythm: regular rhythm Peripheral pulses: radial pulses present and dorsalis pedis present GI Palpation (GI): no masses Auscultation: normal bowel sounds and normoactive bowel sounds Rectal Exam - Female: deferred Skin General skin exam: no rashes or lesions noted Rashes: no rashes Neuro General: No confusion Cranial nerves: Yes Equal, round and reactive pupils present and Yes Normal hearing present Cognition (Neuro): normal cognition Gait exam (Neuro): Normal gait present Motor exam (neuro): 5/5 motor strength present throughout Deep tendon reflexes (DTR's): Right brachioradialis reflex intensity grade: 2+, Left brachioradialis reflex intensity grade: 2+, Right patellar reflex intensity grade: 2+ and Left patellar reflex intensity grade: 2+ Extrem General: No edema Office Procedures Flu Questionnaire Does the patient have a severe egg allergy?: No Does the patient have severe life threatening allergies?: No Does the patient have a fever or illness today?: No Has the patient ever had Guillain-Culver Syndrome?: No Has the patient ever had any past reaction to a flu shot?: No Immunizations Fluarix [id number] (PF) 45 mcg (15 mcg x 3)/0.5 mL IM syringe Performing Provider: Trell Dya MD [facility] Administered by: Corin Agosto RN on 04/02/25 13:07 Dose Route Admin Location Dispensed Lot Number Expiration Date [facility] Utility Worker 0.5 mL IM Right Deltoid 0.5 mL [id number] 11/27/25 [id number] [place] VIS Given Date VIS Provided VIS Publication Date 04/02/25 Single Vaccine 24 Eligibility Eligibility Date Funding Source Not [facility] Eligible 04/02/25 Private Coding Level of Care Code Est Pt Prev Care 40-64y([id number]) Diagnoses Annual physical exam Z00.00 Colon cancer screening Z12.11 Gastroesophageal reflux disease without esophagitis K21.9 Esophagitis presence: without esophagitis Generalized anxiety disorder F41.1 Neck strain S16.1XXA Assessment & Plan Assessment & Plan (1) Annual physical exam: Code(s): Z00.00 - Encounter for general adult medical examination without abnormal findings Category: Medical Plan: Patient is advised to eat healthy, keep well hydrated, keep active and have adequate sleep. (2) Colon cancer screening: Code(s): Z12.11 - Encounter for screening for malignant neoplasm of colon Category: Medical Plan: Patient is reminded about colon cancer screening (3) GERD (gastroesophageal reflux disease): Code(s): K21.9 - Gastro-esophageal reflux disease without esophagitis Category: Medical Qualifiers: Esophagitis presence: without esophagitis Qualified Code(s): K21.9 - Gastro-esophageal reflux disease without esophagitis Plan: Avoid the foods that causes that usually spicy foods, tomato products, juices, coffee, soda and foods that your sensitive to. After eating do not lie down, allow 3-4 hours before in lie down. And keep the head of bed above 30 degrees to avoid the acid from going up. (4) Generalized anxiety disorder: Code(s): F41.1 - Generalized anxiety disorder Category: Medical Plan: Stable (5) Neck strain: Code(s): S16.1XXA - Strain of muscle, fascia and tendon at neck level, initial encounter Category: Medical Plan History of Present Illness The patient is a 44-year-old female presenting for a physical exam. Her past medical history is significant for GERD, hypercholesterolemia, and an anxiety disorder. Her last visit was in October 2024, and blood work from March of the previous year showed normal CBC, electrolytes, renal function, blood sugar, liver function, cholesterol, thyroid, and vitamin B12 levels. She has no new allergies. The patient reports a recent onset of severe neck pain for the last two weeks, which is particularly severe today on the left side, to the point where she cannot touch the area. She states the pain is also in both shoulders, and she believes it may be related to her sleeping position or overexertion from cleaning. She is using lidocaine patches and took ibuprofen for the pain. The patient also saw an ENT specialist for hoarseness and losing her voice after speaking for a short time. The ENT did not find any abnormalities but recommended a CT scan and speech therapy, which the patient refused. She reports intermittent but sometimes very painful foot pain and believes a bunion is developing. Previous x-rays of the left foot were negative. The patient's father had a history of a stroke, and her sister had cancer and is currently experiencing undiagnosed gastrointestinal problems. She takes vitamin D 10,000 IU once or twice a week, a muscle relaxant on and off, allergy medication, and a women's multivitamin intermittently. Health Maintenance The patient presented for a physical exam. A referral to gastroenterology for a colonoscopy will be renewed, as the last one . Routine blood work including cholesterol, glucose, and inflammation markers will be ordered. The patient will be given an influenza vaccine during this visit. Vaccination status was reviewed; tetanus and hepatitis B are up to date, and the shingles vaccine is recommended at age 50. Social History - Alcohol use: The patient reports drinking one or two alcoholic beverages once or twice a month, though she has abstained for the past month. - Tobacco use: The patient denies ever smoking cigarettes. - Exercise: The patient recently canceled her gym membership as she was not able to go. - Diet: The patient is a vegetarian. Review of Systems - Constitutional: Denies syncope. - HEENT: Reports hoarseness and voice loss. - Respiratory: Denies cough or shortness of breath. - Musculoskeletal: Reports severe neck pain, bilateral shoulder pain that is worse on the left, and intermittent foot pain. - Dermatologic: Denies rashes. - Neurological: Reports dizziness. Physical Exam General: Cooperative, healthy appearing, comfortable, no acute distress and well developed Orientation: Patient oriented x3 Limitations: Limited range of motion in the neck and shoulders due to pain Head: Normal to inspection Ears: Hearing grossly normal bilaterally Nose: Normal external nose present Face and sinus: Normal facial exam Eyes: Appearance normal, both eyes and all related structures Neck: Normal visual inspection, limited ROM due to pain Respiratory: Normal respiratory effort and able to speak in complete sentences. Clear to auscultation bilaterally Cardiovascular: Regular rate and rhythm. Normal S1 and S2 GI: Normal to inspection. Soft to palpation and nontender Skin: No rashes or lesions noted Neuro: Patient oriented x3 Extremities: Normal to inspection, except for pain in the left foot and bunion formation on the left foot. Results - Labs (March, previous year): Normal blood count, electrolytes, renal function, blood sugar, liver function, cholesterol, thyroid, and vitamin B12. - Imaging (prior): X-rays of the left foot were negative. Plan Patient was informed and verbally consented to the use of an ambient scribe for clinic note documentation during this visit. 1. Neck And Shoulder Pain The patient presents with severe neck and shoulder pain, likely myalgia secondary to overexertion. An x-ray of the neck will be ordered to rule out other pathology. A referral for physical therapy has been submitted. Management with heat and anti-inflammatories like ibuprofen taken with food was recommended. 2. Hoarseness The patient was previously evaluated by an ENT specialist for hoarseness, and a CT scan was recommended. The patient will follow up on scheduling the recommended CT scan. 3. Foot Pain The patient reports bilateral foot pain, which is likely due to bunions. Gout was discussed as a differential but is less likely given the bilateral symptoms. Education was provided on the etiology of gout, including the role of uric acid, diet, and hydration. 4. Gastroesophageal Reflux Disease The patient's GERD is stable. The patient was informed that the preventive medicine specialist could decide if an endoscopy is needed at the same time as the colonoscopy. Discussion Notes I discussed with the patient that her severe neck and shoulder pain is likely muscular, possibly from overexertion, as she reported extensively cleaning recently. I explained the difference between Tylenol (weaker pain reliever) and ibuprofen (stronger anti-inflammatory) and advised taking ibuprofen with food to avoid stomach upset. I have ordered a neck x-ray and a referral to physical therapy. I also explained the difference between bunions and gout for her foot pain, noting that gout typically affects one joint, becomes red and swollen, and is related to uric acid crystal formation from factors like dehydration and diet. We reviewed her health maintenance needs, and I am renewing a referral to gastroenterology for a colonoscopy, as the previous one from last year was not completed. I explained that the preventive medicine specialist would determine if an endoscopy is also necessary. I ordered updated blood work and she will receive her flu shot today. Patient Instructions - For your neck and shoulder pain, you can use heat and take ibuprofen. - Always take ibuprofen with food to protect your stomach. - I have put in an order for an x-ray of your neck and a referral for physical therapy. - I have also renewed your referral to the stomach specialist (preventive medicine specialist) for a colonoscopy. - Please go to the lab to have the blood work I ordered drawn. - You will receive your flu shot today before you leave. - Regarding your foot pain, it is likely a bunion, but if your big toe ever becomes very red and swollen, it could be gout. - Make sure to drink plenty of water to help prevent gout. - You should get the shingles vaccine when you turn 50 years old. Orders: Orders Comprehensive Met. Panel Today E78.00 - Pure hypercholesterolemia, unspecified Thyroid Stimulating Hormone Today E78.00 - Pure hypercholesterolemia, unspecified Vitamin D 25-OH Total Today E78.00 - Pure hypercholesterolemia, unspecified Erythrocyte Sedimentation Rate Today E78.00 - Pure hypercholesterolemia, unspecified C Reactive Protein Today E78.00 - Pure hypercholesterolemia, unspecified Influenza [id number] Immunization Today Z23 - Encounter for immunization PT Evaluation and Treatment Today S16.1XXA - Strain of muscle, fascia and tendon at neck level, initial encounter Complete Blood Count Auto Diff Today E78.00 - Pure hypercholesterolemia, unspecified Free T4 (Free Thyroxine) Today E78.00 - Pure hypercholesterolemia, unspecified Lipid Panel Today E78.00 - Pure hypercholesterolemia, unspecified Vitamin B12 and Folate Today E78.00 - Pure hypercholesterolemia, unspecified Referrals Gastroenterology Referral Z12.11 - Encounter for screening for malignant neoplasm of colon
[2025-04-02 12:32] VITALS: BP 90/58; PULSE 64; O2SAT 99; BMI 22.0
--- OUTSIDE RECORDS SUMMARY | 2025-04-02 15:36 | XMS_ITS | Data Portability ---
Author Organization [place] [facility], Allergy Address [address] [place] [address] Care Team Providers Care Folder Stitcher Operator Name Role Phone CRISTELA THORPE Referring Provider AGUSTINA ANDERSON Primary Care Provider [phone] Assessment Encounter Date Assessment Date Assessment LastModified by Organization Details LastModified Time 03/23/2025 03/23/2025 44-year-old female presents for evaluation of RUFUS and hoarseness. PSG 05/20/24 demonstrated AHI of 5.5 consistent with mild RUFUS likely positional. Tonsils are 2+ bilaterally. Nasopharynx without adenoid hypertrophy. We discussed use of positional therapy device, sleeping on her side, or using a wedge pillow may help with positional RUFUS. Alternatively we discussed CPAP which patient is not interested in at this time. Fiberoptic laryngoscopy today demonstrated PND and hypertrophy of the base of tongue R>L, but was otherwise without obvious mass or lesion. Base of tongue is soft to palpation. 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 Patient is not interested at this time. Vocal hygiene was discussed and handout provided. Also recommended CT neck with contrast to rule out occult pathology given chronic hoarseness and BOT hypertrophy. Patient would like to proceed with imaging and will follow up to review results. Patient with seasonal allergic rhinitis. Exam notable for PND. We discussed trial of Flonase in addition to antihistamines. Patient is interested in food and environmental allergy testing. Referral to [facility] was sent. [email or web address] Not available 03/23/2025 15:24:55 Plan of Treatment Reminders Order Date Submit Date Provider Last Modified By Organization Details Last Modified Time Details Appointments None recorded. Lab bun/creati nine, ratio, serum 10/24/ 2025 10/24/2 025 [place] [facility] (Centralized Electronic Ordering - All Locations), Patient Can Go To The Location Of Their Choice, [id number] 15:19:50 Referral sweeper driver & immunologi referral 2024 [facility], [address], [address], [place], [address], 16:40:04 Procedures None recorded. Surgeries None recorded. Imaging CT, neck, soft tissue, w/ contrast 2024 [facility], [address] , [place], [address], 15:25:26 Medication Orders Flonase Allergy Relief 50 mcg/actuat ion nasal spray,susp ension 2024 [facility], [address] [place], [address], 15:24:33 Patient TargetsNo targets recorded. Patient InstructionsNo instructions recorded. Reason for Referral Telegraph Equipment Maintainer & Gericare Aide Ref erral for Allergic rhinitis Referring Physician: Romel Lai, Otolaryngology, Encounter Date: 03/23/2025 Problems Name Problem SNOMED Code Status Onset Date Resolution Date Notes Provider Name and Address Organization Details Recorded Time Dysphonia 46365146 Active 2024 ROMEL LAI PA-C [address] [place] [address], [phone], [place] [facility] 15:17:07 Allergic rhinitis 84345519 Active 2024 ROMEL LAI PA-C [address] [place] [address], [phone], [place] [facility] 15:18:53 Obstructive sleep apnea of adult 1121411684079 Active 2024 ROMEL LAI PA-C [address], [phone], [facility] 15:19:01 Problem Notes None recorded. Procedures Surgical History Date Name Laterality Status Provider Name and Address Organization Details Recorded Time 03/23/2025 FOL_DP completed KJ HARRY [address], [address], [facility] 03/23/2025 15:09:20 Imaging Results None recorded. Procedure Notes None recorded. Medical Equipment None Reported. Medications Name Sig Start Date Stop Date Status Note LastModified by Organization Details LastModified Time nystatin 100,000 unit/mL oral suspension TAKE 1 ML BY MOUTH 4 TIMES DAILY FOR 7 DAYS , ADMINSTER 1/2 OF DOSE IN EACH SIDE OF THE MOUTH active Not Available Not Available No t Available prednisone 20 mg tablet TAKE 1 TABLET BY MOUTH ONCE DAILY FOR 5 DAYS active Not Available Not Available No t Available meclizine 12.5 mg tablet TAKE 1 TABLET BY MOUTH THREE TIMES DAILY NEEDED FOR DIZZINESS active Not Available Not Available No t Available amoxicillin 875 mg-potassium clavulanate 125 mg tablet TAKE 1 TABLET BY MOUTH TWICE DAILY FOR 10 DAYS active Not Available Not Available No t Available cyclobenzapr ine 5 mg tablet TAKE 1 TABLET BY MOUTH AT BEDTIME NEEDED FOR MUSCLE SPASM active Not Available Not Available No t Available Flonase Allergy Relief 50 mcg/actuatio n nasal spray,suspen fern [place] 2 sprays every day by intranasal route for 30 days. 2024 active Not Available Not Available Not Avai lable Vitals Date Recorded Body height Body mass index (BMI) Body weight Provider Name and Address Organization Details Last Updated DateTime 03/23/2025 151.13 cm 21.8 kg/m2 26013.16 g DEMETRICE RODRIGUEZ, [facility] [address], [address], [facility] 03/23/2025 13:44:58 Social History None recorded. Functional Status None recorded. Mental Status None recorded. Family History Nothing Reported. Medical History No medical history recorded. Gynecological HistoryNo gynecological history recorded. Obstetrics History GPAL:G 0 P 0 0 0 0 Past Encounters Encounter ID Performer Location Encounter Start Date Encounter Closed Date Diagnosis/Indication Diagnosis SNOMED-CT Code Diagnosis ICD10 Code Diagnosis IMO Codes Diagnosis Note [id number] ROMEL LAI PA-C [facility] [address] [address] 03/23/2025 13:39:00 03/23/2025 14:23:38 Dysphonia 21568813 R49.0 924253 Allergic rhinitis 897499 04 J30.89 6839147 Obstructiv e sleep apnea of adult 9647998362 103 G47.33 3592677 Health Concerns Section Related Observation LastModified by Organization Detai ls LastModified Time None Recorded Concern Status LastModified by Organization Details LastModified Time None Recorded Advance Directives Directive None Recorded Payers Insurance Date Sequence Insurance Name Policy Number Policy Hill Covered Member ID Hill Member ID Guarantor Name 03/27/2025 1 [facility] NET PLAN (MEDICAID HMO) [id number] Esther Sousa [id number] Pamelalatasha Sousa Notes Date Note Type Note Provider Name and Address Organization Details Recorded Time 03/23/2025 text/html ROS as noted in the HPI 44-year-old female presents for evaluation of hoarseness. She reports increased hoarseness and straining of her voice over the past 6 months. She reports this has been a chronic issue and she has seen an ENT in the past for this. She was referred to voice therapy. Denies hemoptysis, otalgia, shortness of breath, and dysphagia. Denies tobacco use. Denies history of GERD. Does report history of seasonal allergies and takes antihistamines as needed. Does chronically have a lot of postnasal drip and phlegm in the throat. She also had a sleep study done at [facility] back in April 2024 and ENT evaluation was recommended. Reports she is sleeping better and denies daytime fatigue. She is not waking up as often during the night gasping for air. She is not interested in CPAP. ROMEL LAI PA-C [address] [place] [address], [phone], [facility] - [facility] 03/23/2025 15:25:53 OBGyn Episode No OBEpisode recorded.
--- OUTSIDE RECORDS SUMMARY | 2025-04-02 15:36 | XMS_ITS | Encounter Summary ---
Author Organization [employer] Address [address] [facility] 7t [place] [address] Care Team Providers Care Thermite Bomb Loader Name Role Phone Unavailable Primary Care Provider Unavailabl e Encounter Details Date Type Department Care Team (Latest Contact Info) Description 10/07/2020 Abstract [facility] CONVERSIONS Dental, Provider, DDS Social History Tobacco [...]
--- OUTSIDE RECORDS SUMMARY | 2025-04-02 15:36 | XMS_ITS | Encounter Summary ---
Author Organization [facility] Address [address] [place] [address] [place] [address] Phone Care Team Providers Care It Network Administrator Name Role Phone Unknown, Unknown Primary Care Provider Trell Ariza MD Primary Care Provider [phone] Reason for Referral * Physical Therapy - Closed Specialty Diagnoses / Procedures Referred By Yandel davis Referred To Contact Physical Therapy Diagnoses Encounter for rehabilitation System, Provider Not In, PhD [id number] [place] [address] [address] [place] [address] Phone: tel: Referral ID Status Reason Start Date Expiration Date Visits Re quested Visits Authorized [id number] Closed 08/31/2017 11/26/2017 17 17 Encounter Details Date Type Department Care Team (Latest Contact Info) Description 08/05/2017 Transcribe Orders [facility] [address] [place] [address] Davy Poole MD [address] [place] [address] [place] [address] Encounter for rehabilitation (Primary Dx) Social History [...] Date/Time Associated Diagnosis Comments AMB REFERRAL TO [facility] PHYSICAL THERAPY Routine 08/31/2017 11:03 AM EDT Encounter for rehabilitation documented in this encounter Results * Ambulatory referral to [facility] Physical Therapy (08/31/2017 11:03 AM EDT) us Provider Not In System PhD AMB [facility] REFERRALS Fin al Result documented in this encounter Visit Diagnoses Diagnosis Encounter for rehabilitation- Primary documented in this encounter Care Teams It Network Administrator Relationship Specialty Start Date End Date Unknown, Unknown, MD PCP - General 08/05/17 08/28/17 Trell Day MD [address] [place] [address] PCP - General Internal Medicine 08/29/17 documented as of this encounter Additional Source Comments The information contained in this document represents components of the legal health record. It is not the complete legal health record.[facility]
--- OUTSIDE RECORDS SUMMARY | 2025-04-02 15:36 | XMS_ITS | Encounter Summary ---
Author Organization [facility] Address [address] [facility] [address] [place] [address] Phone Care Team Providers Care Benefits Manager Name Role Phone Trell Day MD Primary Care Provider [phone] Reason for Referral * Physical Therapy (Routine) - Closed Specialty Diagnoses / Procedures Referred By Contac t Referred To Contact Physical Therapy Diagnoses Encounter for rehabilitation Johana Marr MD Phone: tel: fax: [facility] [address] [place] [address] Phone: tel: Referral ID Status Reason Start Date Expiration Date Visits Re quested Visits Authorized [id number] Closed 06/27/2020 05/30/2021 13 13 Encounter Details Date Type Department Care Team (Latest Contact Info) Description 06/27/2020 Transcribe Orders [facility] [address] [place] [address] Johana Marr MD [address] [place] [address] Encounter for rehabilitation (Primary Dx) Social History [...] Diagnoses Orde r Schedule Ambulatory referral to [facility] Physical Therapy Outpatient Referral Routine Encounter for rehabilitation Ordered: 06/27/2020 documented as of this encounter Visit Diagnoses Diagnosis Encounter for rehabilitation- Primary documented in this encounter Care Teams Benefits Manager Relationship Specialty Start Date End Date Trell Day MD [address] [place] [address] [address] [place] [address] PCP - General Internal Medicine 08/29/17 documented as of this encounter Additional Source Comments The information contained in this document represents components of the legal health record. It is not the complete legal health record.[facility]
--- OUTSIDE RECORDS SUMMARY | 2025-04-02 15:36 | XMS_ITS | Clinical Summary ---
Author Organization [facility] Address [address] [place] [address] Phone Care Team Providers Care Petroleum Laboratory Technician Name Role Phone Trell Day MD Primary Care Provider [phone] Surgical History Surgery Date Site/Laterality Comments OTHER SURGICAL HISTORY 1996 Bilateral PROCEDURE: [place] UNLISTED PROCEDURE EXTRAOCULAR MUSCLE; COMMENT: laser surgery [...] Upcoming Encounters Date Type Department Care Team ([facility] st Contact Info) Description 04/18/2025 1:00 PM EST Consult Orthopedic Surgery - [place] [address] [place] [address] [place] [phone] Nehemiah Martinez, DPM [address] [place] [phone] Health Maintenance Due Date Last Done Comments Breast Cancer Screening 1978 Colorectal Cancer Screening: Colonoscopy 1978 DTaP,Tdap,and Td Vaccines (1 - Tdap) 1997 Cervical Cancer Screening: P ap Smear 06/27/2022 06/27/2019 Depression Screening 05/31/2024 HIV Screening 12/07/2024 Hepatitis C Screening 12/07/2024 Social Influencers of Health Screening 12/07/2024 COVID-19 Vaccine (1 - 2023-2 5 season) 2025 Influenza Vaccine (#1) 2025 RSV Immunization Adult Patients (1 - 1-dose 75+ series) 2053 Hepatitis B Vaccines Completed 09/30/2011, 06/17/2011, 01/16/2011 [...] RESULTING AGENCY - 07/05/2019 1:41 PM EST [id number] THINPREP PAP, IMAGED: LOW-GRADE SQUAMOUS INTRAEPITHELIAL LESION (LSIL) . ABUNDANT PARTIALLY OBSCURING ACUTE INFLAMMATORY CELLS ARE PRESENT. JESUSITA ARROYO(ASCP) (CASE SCREENED 06 30 2019) ADINA HANKINS [...] Most Recently Relevant to Health Maintenance [place] [address] [address] [address] Care Teams Petroleum Laboratory Technician Relationship Specialty Start Date End Date Trell Day MD [address] [place] [address] Dr [address] [facility] [place] [address] PCP - General Internal Medicine 03/01/17
--- OUTSIDE RECORDS SUMMARY | 2025-04-02 15:36 | XMS_ITS | Encounter Summary ---
Author Organization [facility] Address [address] [facility] [address] [place] [address] Phone Care Team Providers Care Cras Name Role Phone Trell Day MD Primary Care Provider [phone] Encounter Details Date Type Department Care Team (Late st Contact Info) Description 05/21/2021 Transcribe Orders Virtual Department [address] [place] [address] Trell Day MD [address] [place] [phone] Social History Tobacco Use Types Packs/Day Years [...] on filedocumented in this encounter Care Teams Cras Relationship Specialty Start Date End Date Trell Day MD [address] [place] [phone] PCP - General Internal Medicine 08/29/17 documented as of this encounter Additional Source Comments The information contained in this document represents components of the legal health record. It is not the complete legal health record.[facility]
--- OUTSIDE RECORDS SUMMARY | 2025-04-02 15:36 | XMS_ITS | Clinical Summary ---
Author Organization [employer] Address [address] [facility] 7t [place] [address] Care Team Providers Care Parts Sales Counterperson Name Role Phone Unavailable Primary Care Provider [...] Cancer Screening 2008 HPV/Cotest 2008 Mammogram 2018 Dental Oral Exam 03/23/2024 09/21/2023, , 09/12/2020 Dental X-Ray: Bitewings 08/24/2024 08/24/19, 10/20/2021, 09/12/2020 Dental Prophylaxis 09/08/2024 03/09/2024, 0 08/24/2023, 10/20/2021, Additional history exists COVID-19 Vaccine ( - 2023- season) 2025 Influenza Vaccine (#1) 2025 Tobacco Screening 03/09/2025 [...]
--- OUTSIDE RECORDS SUMMARY | 2025-04-02 15:36 | XMS_ITS | Encounter Summary ---
Author Organization [employer] Address [address] [facility] 7t [place] [address] Care Team Providers Care Slot Floor Person Name Role Phone Unavailable Primary Care Provider Unavailabl e Encounter Details Date Type Department Care Team (Latest Contact Info) Description 10/20/2021 Abstract [facility] CONVERSIONS Dental, Provider, DDS Social History [...]
== END 2025-04-02 13:21 | disposition home or self-care (01) ==
LOC: HO.HMCH 12:30
PROVIDERS: PCP Internal Medicine; Visit Provider Internal Medicine
DX: Z00.00 Encounter for general adult medical examination without abnormal findings (principal); Z12.11 Encounter for screening for malignant neoplasm of colon; K21.9 Gastro-esophageal reflux disease without esophagitis; F41.1 Generalized anxiety disorder; S16.1XXA Strain of muscle, fascia and tendon at neck level, initial encounter; Z23 Encounter for immunization

== ENCOUNTER → 2025-04-02 13:28 | Outpatient (BNV) | payer OTHER, SELFPAY | PROVIDERS: PCP Internal Medicine; Visit Provider Radiology Diagnostic Radiology | DX: S16.1XXA Strain of muscle, fascia and tendon at neck level, initial encounter (principal); M50.30 Other cervical disc degeneration, unspecified cervical region | CPT/HCPCS: 72040 ==

== ENCOUNTER 2025-04-30 09:06 | Outpatient (REF) | payer OTHER, SELFPAY ==
--- NOTE | ~2025-04-30 | CT_ITS ---
EXAMINATION: CT SOFT TISSUE NECK WITH CONTRAST CLINICAL INFORMATION: Dysphonia COMPARISON: None available. TECHNIQUE: Following the intravenous administration of 60 mL of Omnipaque 350 intravenous contrast, helical imaging was performed in the axial plane with generation of coronal and sagittal reformatted images. This CT examination was performed using dose optimization techniques as appropriate, variously including the following: *Automated exposure control *Adjustment of mA and/or kV according to patient size (this includes techniques or standardized protocols for targeted exams where dose is matched to indication/reason for exam; i.e. extremities or head) *Use of iterative reconstruction technique DLP: 254 mGy-cm FINDINGS: Skull base, nasopharynx, retropharynx, oropharynx, hypopharynx and larynx demonstrated no gross masses or fluid collections. Mild prominent palatine tonsils in the oropharynx reducing the upper airway. 2 mm calcification left palatine tonsil. Revenue Settlements Administrator spaces, parapharyngeal spaces and carotid spaces demonstrated no gross masses or fluid collections. Salivary glands demonstrated normal enhancement pattern without cholelithiasis. Thyroid gland is not enlarged. No gross dominant nodules. The vessels are patent. Nonspecific prominent cervical lymph nodes, the most conspicuous in the right sublingual measuring 9 mm in maximum dimension. The left internal jugular bulb is at the level of the hypotympanum with the questionable incomplete ossification. The carotid arteries are patent without gross plaques. Codominant vertebral arteries. No masses or fluid collections in the intraconal or extraconal compartments of the orbits. No air-fluid levels in the paranasal sinuses. Tympanic cavities and mastoid cells are aerated. Thoracic aortic arch is normal. Cervical spondylosis C5-6 resulting in reverse curvature. 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 CT/CT soft tissue neck w IV con IMPRESSION: No masses or fluid collections. Prominent/engorged palatine tonsils with left-sided tonsillith. High riding left internal jugular bulb with questionable dehiscence versus incomplete ossification. Spondylosis, C5-6. Electronically signed by: Tim Garcia MD 04/30/2025 10:10 AM EST
[2025-04-30] MEDS: iohexoL 350 MG/ML 100 ML INFUS..BTL 60 ML IV (09:57)
[2025-04-30 09:58] LABS: MANUAL DIFF FLAG NO
--- OUTSIDE RECORDS SUMMARY | 2025-04-30 10:37 | XMS_ITS | Encounter Summary ---
Author Organization [employer] Address [address] [facility] 7t [place] [address] Care Team Providers Care Scheduler Name Role Phone Unavailable Primary Care Provider Unavailabl e Encounter Details Date Type Department Care Team (Latest Contact Info) Description 10/20/2021 Abstract [facility] CONVERSIONS Dental, Provider, DDS Social History Tobacco [...]
--- OUTSIDE RECORDS SUMMARY | 2025-04-30 10:37 | XMS_ITS | Clinical Summary ---
Author Organization [facility] Address 175 [place] [address] Phone Care Team Providers Care Wad Blanking Press Adjuster Name Role Phone Trell Day MD Primary Care Provider [phone] Allergies Active Allergy Reactions Criticality Noted Date Comments Octacosanol 08/24/2023 Medications cyclobenzaprine (FLEXERIL) 5 mg tablet Take 1 tablet (5 mg total) by mouth at bedtime as needed for muscle spasms. Active fluconazole (DIFLUCAN) 150 mg tablet TAKE 1 TABLET BY MOUTH A ONE TIME DOSE FOR 1 DAY 4 Active loratadine (CLARITIN) 10 mg tablet Take 1 tablet (10 mg total) by mouth daily. 4 Active fluticasone propionate (Flonase Allergy Relief) 50 mcg/actuation nasal spray [place] 2 sprays every day by intranasal route for 30 days. 5 Active meclizine (ANTIVERT) 12.5 mg tablet Take 1 tablet (12.5 mg total) by mouth 3 (three) times a day if needed for dizziness. Active Encounters Date Type Department Care Team Description 04/18/2025 1:00 PM EST Consult Orthopedic Surgery - [place] [address] [address] Nehemiah Martinez, DPM Bunion, right foot (Primary Dx) from Last 3 Months Surgical History Surgery Date Site/Laterality Comments OTHER SURGICAL HISTORY 1996 Bilateral PROCEDURE: [place] UNLISTED PROCEDURE EXTRAOCULAR MUSCLE; COMMENT: laser surgery [...] on file Obstetrics History Plan of Treatment Health Maintenance Due Date Last Done Comments Breast Cancer Screening 1978 Colorectal Cancer Screening: Colonoscopy 1978 DTaP,Tdap,and Td Vaccines (1 - Tdap) 1997 Cervical Cancer Screening: P ap Smear 06/27/2022 06/27/2019 Depression Screening 05/31/2024 HIV Screening 12/07/2024 Hepatitis C Screening 12/07/2024 Social Influencers of Health Screening 12/07/2024 COVID-19 Vaccine (1 - 2024-2 6 season) 2025 Influenza Vaccine (#1) 2025 RSV [...] Procedure Name Priority Date/Time Associated Diagnosis Comments XR FOOT 3+ VIEWS BILAT Routine 04/18/2025 1:17 PM EST Bunion, right foot PAP SMEAR Routine 06/27/2019 from Last 3 Months or Most Recently Relevant to Health Maintenance Results * XR Foot 3+ Views bilat (04/18/2025 1:17 PM EST) Anatomical Region Laterality Modality Lower Extremities, Foot Bilateral Computed Radiography Narrative 04/18/2025 6:07 PM EST Right foot 3 views No fracture. No radiopaque foreign joint spaces normal Foot position rectus Normal talus navicular position normal calcaneal inclination normal symes line talus navicular joint to calcaneal cuboid joint Left foot 3 views No fracture. No radiopaque foreign joint spaces normal Foot position rectus Normal talus navicular position normal calcaneal inclination normal symes line talus navicular joint to calcaneal cuboid joint us Nehemiah Martinez DPM IMG XR PROCEDURES Final R esult * Pap smear (06/27/2019) 06/27/2019 Narrative HISTORICAL TESTING LAB RESULTING AGENCY - 07/05/2019 1:41 PM EST [id number] THINPREP PAP, IMAGED: LOW-GRADE SQUAMOUS INTRAEPITHELIAL LESION [...] Most Recently Relevant to Health Maintenance Insurance [facility] [employer] [employer] Care Teams Wad Blanking Press Adjuster Relationship Specialty Start Date End Date Trell Day MD [address] [place] [address] [address] [facility] [place] [address] PCP - General Internal Medicine 03/01/17
--- OUTSIDE RECORDS SUMMARY | 2025-04-30 10:37 | XMS_ITS | Encounter Summary ---
Author Organization [facility] Address [address] [facility] [address] [place] [address] Phone Care Team Providers Care Sales Lead Name Role Phone Trell Day MD Primary Care Provider Encounter Details Date Type Department Care Team (Late st Contact Info) Description 05/21/2021 Transcribe Orders Virtual Department [address] [place] [address] rTell Day MD [address] [place] [phone] Social History Tobacco Use Types Packs/Day Years [...] on filedocumented in this encounter Care Teams Sales Lead Relationship Specialty Start Date End Date Trell Day MD [address] [place] [phone] PCP - General Internal Medicine 08/29/17 documented as of this encounter Additional Source Comments The information contained in this document represents components of the legal health record. It is not the complete legal health record.[facility]
--- OUTSIDE RECORDS SUMMARY | 2025-04-30 10:37 | XMS_ITS | Clinical Summary ---
Author Organization [facility] Address [address] [facility] [address] [place] [address] Phone Care Team Providers Care Plastic Welder Name Role Phone Trell Day MD Primary Care Provider [phone] Medications No known medications Active Problems No [...] topic Medical Devices Not on file [place] [address] PCP [facility] NET PARTIAL [employer] NON NSPG PCP [employer] [facility] NET PARTIAL [employer] NON NSPG PCP S[facility] [facility] NET PARTIAL [facility] NON NSPG PCP SILVER [employer] NET PARTIAL [facility] NON NSPG PCP SILVER [employer] [facility] NET PARTIAL [employer] NON NSPG PCP SILVER CLARITY [facility] [employer] NET PARTIAL [address] [place], [place] [address]ENSE NON NSPG PCP SILVER CLARITY CONNECTORCARE [employer] SAFETY [place] [address] [place] [address] NON NSPG PCP SILVER CLARITY [employer] [place] [address] [place] [address] NON NSPG PCP SILVER [employer] SAFETY NET PARTIAL Care Teams Plastic Welder Relationship Specialty Start Date End Date Trell Day MD [address] [place] [phone] PCP - General Internal Medicine 08/29/17 Additional Source Comments The information contained in this document represents components of the legal health record. It is not the complete legal health record.[facility]
--- OUTSIDE RECORDS SUMMARY | 2025-04-30 10:37 | XMS_ITS | Encounter Summary ---
Author Organization [employer] Address [address] [place] [address] Care Team Providers Care Counselor Marriage And Family Name Role Phone Unavailable Primary Care Provider Unavailabl e Encounter Details Date Type Department Care Team (Latest Contact Info) Description 10/07/2020 Abstract [facility] CONVERSIONS Dental, Provider, DDS Social History [...]
--- OUTSIDE RECORDS SUMMARY | 2025-04-30 10:37 | XMS_ITS | Encounter Summary ---
Author Organization [facility] Address [address] [place] [address] Phone Care Team Providers Care Auto Overhauler Name Role Phone Trell Day MD Primary Care Provider [phone] Reason for Referral * Physical Therapy (Routine) - Closed Specialty Diagnoses / Procedures Referred By Contac t Referred To Contact Physical Therapy Diagnoses Encounter for rehabilitation Johana Marr MD Phone: tel: fax: [facility] [address] [place] [address] Phone: tel: Referral ID Status Reason Start Date Expiration Date Visits Re quested Visits Authorized [id number] Closed 06/27/2020 05/30/2021 13 13 Encounter Details Date Type Department Care Team (Latest Contact Info) Description 06/27/2020 Transcribe Orders [facility] [address] [place] [address] Johana Marr MD [address] [place] [address] Encounter for rehabilitation (Primary Dx) Social History [...] Diagnoses Orde r Schedule Ambulatory referral to [facility] Physical Therapy Outpatient Referral Routine Encounter for rehabilitation Ordered: 06/27/2020 documented as of this encounter Visit Diagnoses Diagnosis Encounter for rehabilitation- Primary documented in this encounter Care Teams Auto Overhauler Relationship Specialty Start Date End Date Trell Day MD [address] [place] [address] [address] [place] [address] PCP - General Internal Medicine 08/29/17 documented as of this encounter Additional Source Comments The information contained in this document represents components of the legal health record. It is not the complete legal health record.[facility]
--- OUTSIDE RECORDS SUMMARY | 2025-04-30 10:37 | XMS_ITS | Encounter Summary ---
Author Organization [facility] Address [address] [facility] [address] [facility] [address] [place] [address] Phone Care Team Providers Care Cylinder Inspector And Tester Name Role Phone Unknown, Unknown Primary Care Provider Trell Ariza MD Primary Care Provider [phone] Reason for Referral * Physical Therapy - Closed Specialty Diagnoses / Procedures Referred By Yandel davis Referred To Contact Physical Therapy Diagnoses Encounter for rehabilitation System, Provider Not In, PhD [id number] [place] [address] [address] [place] [address] Phone: tel: Referral ID Status Reason Start Date Expiration Date Visits Re quested Visits Authorized [id number] Closed 08/31/2017 11/26/2017 17 17 Encounter Details Date Type Department Care Team (Latest Contact Info) Description 08/05/2017 Transcribe Orders [facility] [address] [place] [address] Davy Poole MD [address] [place] [address] [place] [address] Encounter for rehabilitation (Primary Dx) Social History [...] Date/Time Associated Diagnosis Comments AMB REFERRAL TO [facility] PHYSICAL THERAPY Routine 08/31/2017 11:03 AM EDT Encounter for rehabilitation documented in this encounter Results * Ambulatory referral to [facility] Physical Therapy (08/31/2017 11:03 AM EDT) us Provider Not In System PhD AMB [facility] REFERRALS Fin al Result documented in this encounter Visit Diagnoses Diagnosis Encounter for rehabilitation- Primary documented in this encounter Care Teams Cylinder Inspector And Tester Relationship Specialty Start Date End Date Unknown, Unknown, MD PCP - General 08/05/17 08/28/17 Trell Day MD [address] [place] [address] PCP - General Internal Medicine 08/29/17 documented as of this encounter Additional Source Comments The information contained in this document represents components of the legal health record. It is not the complete legal health record.[facility]
--- OUTSIDE RECORDS SUMMARY | 2025-04-30 10:37 | XMS_ITS | Clinical Summary ---
Author Organization [employer] Address [address] [place] [address] Care Team Providers Care Phlebotomy Services Technician Name Role Phone Unavailable Primary Care Provider [...] Additional history exists COVID-19 Vaccine ( - 2024- season) 2025 Influenza Vaccine (#1) 2025 Tobacco [...]
[2025-04-30 10:44] LABS: Hematocrit 41.5 % (37.0-47.0); Hemoglobin 15.5 g/dl (12.0-16.0); Imm Gran Abs Auto 0.04 X10*3/uL (0.00-0.03); Imm Gran Pct Auto 0.6 % (0.0-0.4); Lymphocytes Absolute Auto 2.5 X10*3/uL (1.2-4.9); Mean Corpuscular HGB Conc 37.3 g/dl (31.0-35.0); Mean Corpuscular Hemoglobin 34.0 pg (27.0-33.0); Mean Corpuscular Volume 91.0 fL (80.0-98.0); NRBC Abs Auto 0.000 X10*3/uL (0.0-0.012); NRBC Pct Auto 0.0 /100WBC (0.0-0.2); Platelet Count 372 X10*3/uL (160-400); Red Blood Count 4.56 X10*6/uL (4.20-5.50); White Blood Count 7.2 X10*3/uL (4.8-10.8)
[2025-04-30 11:18] LABS: Erythrocyte Sedimentation Rate 5 MM/HR (0-20)
[2025-04-30 11:24] LABS: Alanine Aminotransferase 14 U/L (0-31); Albumin Level 4.3 g/dL (3.5-5.0); Alkaline Phosphatase 59 U/L (39-117); Anion Gap 12 (12-20); Aspartate Amino Transferase 31 U/L (5-31); Blood Urea Nitrogen 8 mg/dL (9-16); Calcium 9.3 mg/dL (8.4-10.2); Carbon Dioxide 25 mmol/L (22-29); Chloride 105 mmol/L (96-108); Cholesterol 221 mg/dL (<200); Estimated Glomerular Filt Rate > 60; HDL Cholesterol 87 mg/dL (>40); Potassium 4.5 mmol/L (3.3-5.1); Sodium 137 mmol/L (135-145); Total Protein 7.4 g/dL (6.5-8.0); Triglycerides 79 mg/dL (<150)
[2025-04-30 11:36] LABS: Folate 15.6 ng/mL (> or = 4.0); Vitamin B12 531 pg/mL (200-900)
[2025-04-30 11:53] LABS: Free T4 (Free Thyroxine) 1.16 ng/dL (0.71-1.85); Thyroid Stimulating Hormone 1.82 uIU/mL (0.32-4.0)
== END 2025-04-30 09:07 | disposition home or self-care (01) ==
LOC: HO.CT 09:06
PROVIDERS: Absent Provider Internal Medicine; PCP Internal Medicine; Visit Provider Physician Assistant Medical
DX: R49.0 Dysphonia (principal); E78.00 Pure hypercholesterolemia, unspecified
CPT/HCPCS: 36415; 70491; 80053; 80061; 82306; 82607; 82746; 84439; 84443; 85025; 85652; 86140; Q9967

== ENCOUNTER → 2025-04-30 09:27 | Outpatient (BNV) | payer OTHER, SELFPAY | PROVIDERS: Absent Provider Internal Medicine; PCP Internal Medicine; Visit Provider Radiology Diagnostic Radiology | DX: M47.812 Spondylosis without myelopathy or radiculopathy, cervical region (principal) | CPT/HCPCS: 70491 ==